=== PATIENT | female | born 1955 | race Caucasian/White ===

== ENCOUNTER 2017-02-10 23:54 | Inpatient (IN) | payer BC ==
[2017-02-11] MEDS ORDERED: SODIUM CHLORIDE 0.9% 1,000 ML IV STA (00:14)
[2017-02-11] MEDS ORDERED: HYDROmorphone 1 MG/ML 1 ML SYRINGE IVP STA ×2 (00:14→00:20)
[2017-02-11] MEDS ORDERED: ONDANSETRON 4 MG/2 ML VIAL IVP STA (00:14)
--- NOTE | 2017-02-11 00:20 | ED ---
General Adult HPI - General Chief complaint: Abdominal Pain Stated complaint: abd pain Time Seen by Provider: 02/11/17 00:00 Source: patient, RN notes reviewed Mode of arrival: ambulatory Limitations: no limitations - History of Present Illness Initial comments: This is a 61-year-old female presents to the emergency department complaining of epigastric pain and right upper quadrant pain. Patient states it started after she ate at 3:00 this afternoon and the pain is gotten worse. Patient states she's had similar episodes last week 2 days in a row after eating. Patient denies any abdominal surgeries. Patient denies any recent fever or chills. Patient states she is nauseated but is not vomiting. Patient denies any diarrhea. Patient denies any chest pain difficulty breathing or palpitations. Patient states the pain is currently quite significant. Patient denies any headache patient denies numbness weakness. - Related Data Home Medications Medication Instructions Recorded Confirmed No Known Home Medications [No 02/11/17 02/11/17 Known Home Medications] Allergies Allergy/AdvReac Type Severity Reaction Status Date / Time codeine Allergy Unknown Verified 02/11/17 00:03 amoxicillin AdvReac Nausea & Verified 02/11/17 00:03 Vomiting & Diarrhea Review of Systems ROS Statement: Those systems with pertinent positive or pertinent negative responses have been documented in the HPI. ROS Other: All systems not noted in ROS Statement are negative. Past Medical History Past Medical History: No Reported History History of Any Multi-Drug Resistant Organisms: None Reported Past Surgical History: Tonsillectomy Past Psychological History: No Psychological Hx Reported Smoking Status: Former smoker Past Alcohol Use History: Daily Past Drug Use History: None Reported General Exam - General Exam Comments Initial Comments: GENERAL: Patient is well-developed and well-nourished. Patient is nontoxic and well- hydrated and is in moderate distress. ENT: Neck is soft and supple. No significant lymphadenopathy is noted. Oropharynx is clear. Moist mucous membranes. Neck has full range of motion without eliciting any pain. EYES: The sclera were anicteric and conjunctiva were pink and moist. Extraocular movements were intact and pupils were equal round and reactive to light. Eyelids were unremarkable. PULMONARY: Unlabored respirations. Good breath sounds bilaterally. No audible rales rhonchi or wheezing was noted. CARDIOVASCULAR: There is a regular rate and rhythm without any murmurs gallops or rubs. ABDOMEN: Patient has tender epigastric region as well as left upper quadrant. There is no rebound. No palpable organomegaly was noted. There is no palpable pulsatile mass. SKIN: Skin is clear with no lesions or rashes and otherwise unremarkable. NEUROLOGIC: Patient is alert and oriented x3. Cranial nerves II through XII are grossly intact. Motor and sensory are also intact. Normal speech, volume and content. Symmetrical smile. MUSCULOSKELETAL: Normal extremities with adequate strength and full range of motion. No lower extremity swelling or edema. No calf tenderness. LYMPHATICS: No significant lymphadenopathy is noted PSYCHIATRIC: Normal psychiatric evaluation. Limitations: no limitations Course Vital Signs 02/10/17 23:59 Temperature 97.1 F L Pulse Rate 89 Respiratory 20 Rate Blood Pressure 169/81 O2 Sat by Pulse 100 Oximetry Medical Decision Making - Medical Decision Making EKG shows a normal sinus rhythm at 91 bpm OR interval is 152 QRS is 82 QT interval 372 QTC is 457 per patient's EKG shows no ST segment elevation or depression or T wave abnormalities are noted. Ultrasound shows acute cholecystitis with multiple stones as well as dilated common bile duct. - Lab Data Result diagrams: 02/11/17 00:30 02/11/17 00:30 Lab Results 02/11/17 02/11/17 02/11/17 Range/Units 00:30 00:30 00:30 WBC 9.4 (3.8-10.6) k/uL RBC 4.69 (3.80-5.40) m/uL Hgb 15.3 (11.4-16.0) gm/dL Hct 44.3 (34.0-46.0) % MCV 94.4 (80.0-100.0) fL MCH 32.7 (25.0-35.0) pg MCHC 34.6 (31.0-37.0) g/dL RDW 12.6 (11.5-15.5) % Plt Count 286 (150-450) k/uL Neutrophils % 78 % Lymphocytes % 14 % Monocytes % 4 % Eosinophils % 2 % Basophils % 1 % Neutrophils # 7.4 (1.3-7.7) k/uL Lymphocytes # 1.3 (1.0-4.8) k/uL Monocytes # 0.4 (0-1.0) k/uL Eosinophils # 0.2 (0-0.7) k/uL Basophils # 0.1 (0-0.2) k/uL Sodium 139 (137-145) mmol/L Potassium 3.6 (3.5-5.1) mmol/L Chloride 100 (98-107) mmol/L Carbon Dioxide 29 (22-30) mmol/L Anion Gap 10 mmol/L BUN 14 (7-17) mg/dL Creatinine 0.80 (0.52-1.04) mg/dL Est GFR (MDRD) Af Amer >60 (>60 ml/min/1.73 sqM) Est GFR (MDRD) Non-Af >60 (>60 ml/min/1.73 sqM) Glucose 156 H (74-99) mg/dL Plasma Lactic Acid Neil 1.2 (0.7-2.0) mmol/L Calcium 11.3 H (8.4-10.2) mg/dL Total Bilirubin 2.7 H (0.2-1.3) mg/dL AST 703 H (14-36) U/L ALT 488 H (9-52) U/L Alkaline Phosphatase 214 H (38-126) U/L Total Protein 7.7 (6.3-8.2) g/dL Albumin 4.5 (3.5-5.0) g/dL Amylase 2230 H* (30-110) U/L Lipase >54202 H (23-300) U/L Urine Color Urine Appearance (Clear) Urine pH (5.0-8.0) Ur Specific [place] (1.001-1.035) Urine Protein (Negative) Urine Glucose (UA) (Negative) Urine Ketones (Negative) Urine Blood (Negative) Urine Nitrite (Negative) Urine Bilirubin (Negative) Urine Urobilinogen (<2.0) mg/dL Ur Leukocyte Esterase (Negative) Urine WBC (0-5) /hpf Ur Squamous Epith Cells (0-4) /hpf Urine Bacteria (None) /hpf Urine Yeast (Budding) (None) /hpf 02/11/17 Range/Units 01:35 WBC (3.8-10.6) k/uL RBC (3.80-5.40) m/uL Hgb (11.4-16.0) gm/dL Hct (34.0-46.0) % MCV (80.0-100.0) fL MCH (25.0-35.0) pg MCHC (31.0-37.0) g/dL RDW (11.5-15.5) % Plt Count (150-450) k/uL Neutrophils % % Lymphocytes % % Monocytes % % Eosinophils % % Basophils % % Neutrophils # (1.3-7.7) k/uL Lymphocytes # (1.0-4.8) k/uL Monocytes # (0-1.0) k/uL Eosinophils # (0-0.7) k/uL Basophils # (0-0.2) k/uL Sodium (137-145) mmol/L Potassium (3.5-5.1) mmol/L Chloride (98-107) mmol/L Carbon Dioxide (22-30) mmol/L Anion Gap mmol/L BUN (7-17) mg/dL Creatinine (0.52-1.04) mg/dL Est GFR (MDRD) Af Amer (>60 ml/min/1.73 sqM) Est GFR (MDRD) Non-Af (>60 ml/min/1.73 sqM) Glucose (74-99) mg/dL Plasma Lactic Acid Neil (0.7-2.0) mmol/L Calcium (8.4-10.2) mg/dL Total Bilirubin (0.2-1.3) mg/dL AST (14-36) U/L ALT (9-52) U/L Alkaline Phosphatase (38-126) U/L Total Protein (6.3-8.2) g/dL Albumin (3.5-5.0) g/dL Amylase (30-110) U/L Lipase (23-300) U/L Urine Color Light Yellow Urine Appearance Cloudy H (Clear) Urine pH 8.0 (5.0-8.0) Ur Specific [place] 1.004 (1.001-1.035) Urine Protein Negative (Negative) Urine Glucose (UA) Negative (Negative) Urine Ketones 1+ H (Negative) Urine Blood Negative (Negative) Urine Nitrite Negative (Negative) Urine Bilirubin Negative (Negative) Urine Urobilinogen <2.0 (<2.0) mg/dL Ur Leukocyte Esterase Trace H (Negative) Urine WBC 2 (0-5) /hpf Ur Squamous Epith Cells <1 (0-4) /hpf Urine Bacteria Few H (None) /hpf Urine Yeast (Budding) Few H (None) /hpf Disposition Clinical Impression: Acute cholecystitis due to biliary calculus, Acute gallstone pancreatitis Disposition: ADMITTED IP TO THIS HOSP Time of Disposition: 03:02
[2017-02-11 00:56] LABS: Basophils # (A) 0.1 k/uL (0-0.2); Basophils % (A) 1 %; CHCM 36.1; Eosinophils # (A) 0.2 k/uL (0-0.7); Eosinophils % (A) 2 %; HCT 44.3 % (34.0-46.0); HDW 2.47; HGB 15.3 gm/dL (11.4-16.0); Luc # (Auto) 0.15; Luc % (Auto) 2; Lymphocytes # (A) 1.3 k/uL (1.0-4.8); Lymphocytes % (A) 14 %; MCH 32.7 pg (25.0-35.0); MCHC 34.6 g/dL (31.0-37.0); MCV 94.4 fL (80.0-100.0); Mean Platelet Volume 7.4; Monocytes # (A) 0.4 k/uL (0-1.0); Monocytes % (A) 4 %; Neutrophils # (A) 7.4 k/uL (1.3-7.7); Neutrophils % (A) 78 %; RBC 4.69 m/uL (3.80-5.40); RDW 12.6 % (11.5-15.5); WBC 9.4 k/uL (3.8-10.6); WBC (Perox) 9.69
[2017-02-11 01:17] LABS: ALT 488 U/L (9-52); AST 703 U/L (14-36); Alkaline Phosphatase 214 U/L (38-126); Anion Gap 10 mmol/L; Blood Urea Nitrogen 14 mg/dL (7-17); Calcium 11.3 mg/dL (8.4-10.2); Carbon Dioxide 29 mmol/L (22-30); Chloride 100 mmol/L (98-107); Glucose 156 mg/dL (74-99); Non-African American GFR(MDRD) >60 (>60 ml/min/1.73 sqM); Potassium 3.6 mmol/L (3.5-5.1); Sodium 139 mmol/L (137-145); Total Bilirubin 2.7 mg/dL (0.2-1.3); Total Protein 7.7 g/dL (6.3-8.2)
[2017-02-11 01:26] LABS: Amylase 2230 U/L (30-110)
[2017-02-11 01:49] LABS: Appearance,Urine Cloudy (Clear); Bacteria,Urine Few /hpf; Bilirubin,Urine Negative (Negative); Glucose,Urine (UA) Negative (Negative); Ketones,Urine 1+ (Negative); Leukocyte Esterase,Urine Trace (Negative); Nitrite,Urine Negative (Negative); Particle Count 4874; Protein,Urine Negative (Negative); Specific Gravity,Urine 1.004 (1.001-1.035); Squamous Epithelial Cell,Urine <1 /hpf (0-4); UA Billing (MACRO vs. MICRO) MICRO; Urobilinogen,Urine <2.0 mg/dL (<2.0); WBC,Urine 2 /hpf (0-5)
[2017-02-11] MEDS ORDERED: PIPERACILLIN-TAZOBACTAM 3.375 GM in DEXTROSE/WATER 1 50ML.BAG IVPB STA (02:56)
[2017-02-11] MEDS ORDERED: SODIUM CHLORIDE 0.9% 1,000 ML IV ONE (03:03)
--- NOTE | 2017-02-11 03:24 | US ---
EXAM: US Abdomen Limited, Right Upper Quadrant. CLINICAL HISTORY: Reason: Pain TECHNIQUE: Real-time ultrasound of the right upper quadrant with image documentation. COMPARISON: No relevant prior studies available. FINDINGS: Liver: Uniform in appearance. Gallbladder: Elongated gallbladder measuring 9.5 cm, with wall thickening measuring 5 mm, and containing multiple stones within and what may be a small polyp proximally. Reported sonographic Chavez sign present. Common bile duct: Borderline caliber of the extrahepatic common duct measuring up to 7 mm, and there may be minimal intrahepatic biliary duct dilatation present on some of the images. Pancreas: Pancreatic duct is seen, and measures 2 mm, within normal limits. The visualized pancreas is uniform. Right kidney: Unremarkable. No stones. No solid mass. No hydronephrosis. IMPRESSION: 1. Cholelithiasis with additional findings raising suspicion for the presence of acute cholecystitis including reported sonographic Chavez sign, which could be correlated and confirmed clinically. Further imaging workup could be obtained as clinically indicated. 2. Slightly prominent appearance of the biliary ductal system without visualized common duct stone, where included. [employer] 02/11/17 03:27 Call Doctor Regarding Above results, called Dr. Huntley on 02/11 03:26 (-04:00)
[2017-02-11] MEDS: PIPERACILLIN-TAZOBACTAM 3.375 GM in DEXTROSE/WATER 1 50ML.BAG IVPB SCH ×2 (08:04→16:02)
[2017-02-11 08:08] LABS: Basophils # (A) 0.1 k/uL (0-0.2); Basophils % (A) 1 %; CH 33.8; CHCM 34.8; Eosinophils # (A) 0.2 k/uL (0-0.7); Eosinophils % (A) 3 %; HCT 41.9 % (34.0-46.0); HGB 14.1 gm/dL (11.4-16.0); Luc # (Auto) 0.12; Luc % (Auto) 2; Lymphocytes # (A) 1.8 k/uL (1.0-4.8); Lymphocytes % (A) 25 %; MCH 32.7 pg (25.0-35.0); MCHC 33.6 g/dL (31.0-37.0); MCV 97.4 fL (80.0-100.0); Mean Platelet Volume 7.1; Monocytes # (A) 0.5 k/uL (0-1.0); Monocytes % (A) 7 %; Neutrophils # (A) 4.4 k/uL (1.3-7.7); Neutrophils % (A) 62 %; RDW 12.7 % (11.5-15.5); WBC 7.1 k/uL (3.8-10.6); WBC (Perox) 7.12
[2017-02-11 08:15] LABS: INR 1.1 (<1.1); Prothrombin Time 10.7 sec (9.0-12.0)
[2017-02-11 08:27] LABS: ALT 531 U/L (9-52); AST 586 U/L (14-36); Alkaline Phosphatase 171 U/L (38-126); Anion Gap 10 mmol/L; Blood Urea Nitrogen 11 mg/dL (7-17); Calcium 10.2 mg/dL (8.4-10.2); Carbon Dioxide 24 mmol/L (22-30); Chloride 108 mmol/L (98-107); Glucose 93 mg/dL (74-99); Non-African American GFR(MDRD) >60 (>60 ml/min/1.73 sqM); Potassium 3.8 mmol/L (3.5-5.1); Sodium 142 mmol/L (137-145); Total Bilirubin 2.4 mg/dL (0.2-1.3); Total Protein 6.8 g/dL (6.3-8.2)
--- NOTE | 2017-02-11 09:12 | P.CONS ---
History of Present Illness - Reason for Consult Consult date: 02/11/17 Gallstone pancreatitis Requesting physician: Ugo Duarte - History of Present Illness 61-year-old female patient Dr. Rodriguez presents with acute midepigastric pain radiating to the upper back that started yesterday. Patient has had several attacks of this type of presentation over the last few months. Admission liver enzymes were elevated; total bilirubin 2.7. AST 703. ALT 488. Alkaline phosphatase 214. Amylase 2230. Lipase greater than 20,000. Denies weight loss , fever chills hematemesis hematochezia or melena. No history of hepatitis or pancreatitis. No history of intravenous drug abuse or alcohol. No changes in medications. White count 9.4. Hemoglobin 15.3. Calcium 11.3. Hematocrit 44.3. CO2 29. Urine has been more dark in nature but denies acholic stools. Ultrasound abdomen reported cholelithiasis with elongated gallbladder measuring 9.5 cm with wall thickening at 5 mm. CBD 7 mm possible minimal intrahepatic biliary duct dilatation. Pancreatic duct 2 mm. Pancreas is uniform. Review of Systems Constitutional: Denies fever, chills, sweats, weight gain, or loss. HEENT: Negative for migraines, blurred vision or loss, earaches, drainage, tinnitus, oral mucosal lesions, dysphagia, or odynophagia. CARDIAC: Negative for chest pain, arrhythmias, or palpitation. RESPIRATORY: Negative for shortness of breath, hemoptysis, cough, or sputum production. GI: See HPI for pertinent findings. : Negative for hematuria, urgency, frequency, polyuria, or dysuria. GYNc: Negative vaginal discharge. MUSCULOSKELETAL: Negative for muscle aches, swelling, arthritis, and arthralgias. NEUROLOGIC: Negative for stroke or TIA. ENDOCRINE: Negative for thyroid problems. SKIN: Negative for rash or itching. PSYCHIATRIC: Negative history for depression and anxiety All systems: negative (See HPI) Past Medical History Past Medical History: No Reported History History of Any Multi-Drug Resistant Organisms: None Reported Past Surgical History: Tonsillectomy Past Anesthesia/Blood Transfusion Reactions: No Reported Reaction Past Psychological History: No Psychological Hx Reported Smoking Status: Former smoker Past Alcohol Use History: Daily Past Drug Use History: None Reported - Past Family History Father Family Medical History: Cancer, Prostate Disorder, Rheumatoid Arthritis (RA) Additional Family Medical History / Comment(s): of prostate CA at 91 Mother Family Medical History: Diabetes Mellitus Sister(s) Family Medical History: Cancer Additional Family Medical History / Comment(s): Uterine CA; Whipple procedure secondary to mass on bile duct Medications and Allergies Home Medications Medication Instructions Recorded Confirmed Type Calcium Carbonate/Vitamin D3 1 tab PO DAILY 02/11/17 02/11/17 History [Calcium 600-Vit D3 200 Tablet] Cyanocobalamin (Vitamin B-12) 1,000 mcg PO DAILY 02/11/17 02/11/17 History [Vitamin B-12] Multivitamins, Thera [Multivitamin 1 tab PO DAILY 02/11/17 02/11/17 History (formulary)] Allergies Allergy/AdvReac Type Severity Reaction Status Date / Time codeine Allergy Unknown Verified 02/11/17 08:38 amoxicillin AdvReac Nausea & Verified 02/11/17 08:38 Vomiting & Diarrhea Physical Exam Vitals: Vital Signs Temp Pulse Pulse Pulse Resp BP BP 02/11/17 07:00 96.5 F L 74 19 128/75 02/11/17 04:10 97.1 F L 84 16 142/87 02/11/17 03:10 98.8 F 92 18 122/67 Pulse Ox 02/11/17 07:00 97 02/11/17 04:10 96 02/11/17 03:10 95 Intake and Output 02/10/17 02/11/17 02/11/17 22:59 06:59 14:59 Other: # Voids 1 Weight 56 kg General appearance: The patient is alert, oriented, in no acute distress. HET: Head is normocephalic and atraumatic. Pupils are equal and reactive. Oropharynx is clear without lesions. Neck: Supple without lymphadenopathy. Trachea midline. Heart: S1 S2. Regular rate and rhythm. Lungs: No crackles or wheezes are heard. Abdomen: Soft, mild midepigastric tenderness, nondistended with bowel sounds. No peritoneal signs. No palpable organomegaly or masses. Extremities: Normal skin color and turgor. No cyanosis, rash, ulceration, clubbing, or edema. Radial and pedal pulses are 2/4 bilaterally. Neurological: No focal deficits. Strength and sensation are grossly intact. Results CBC & Chem 7: 02/11/17 07:51 02/11/17 00:30 US - abdomen: report reviewed (Reviewed by Dr. George) Assessment and Plan (1) Acute gallstone pancreatitis Status: Acute Plan: 1. Repeat amylase lipase CMP today if significantly improved may allow a clear liquid diet later today followed by nothing by mouth after midnight. 2. If liver enzymes do not improve most likely will proceed with ERCP evaluation once amylase lipase improve. 3. General surgical consultation. 4. Check hepatitis panel. 5. Will follow with you. The anode adjuster has discussed the risks, benefits and alternative therapies for the above-mentioned procedure and for both sedation/analgesia as well as necessary blood product administration, if indicated, as they pertain to this patient. The patient has indicated understanding and acceptance of the risks and procedures discussed. Thank you for this kind referral and the opportunity to participate in the care of your patient. This consultation was discussed with Dr. George. The impression and plan of care have been directed as dictated.
[2017-02-11 09:38] LABS: Amylase 725 U/L (30-110)
[2017-02-11 10:50] LABS: Hepatitis B Surface Ag Index 0.09
[2017-02-11 10:56] LABS: Hepatitis B Core IgM Index 0.05
[2017-02-11 11:08] LABS: Hepatitis C Virus IgG Index 0.01
[2017-02-11 11:12] LABS: Hepatitis C Virus IgG Ab Negative (Negative)
--- NOTE | 2017-02-11 12:22 | P.GSCN ---
History of Present Illness Consult date: 02/11/17 History of present illness: patient is a 61-year-old white female who presented to the emergency room with midepigastric pain radiating to upper quadrant. The patient has had several such attacks in the past. The patient was noted to have an ultrasound which revealed gallstones. The patient had eaten nodules and cheese. Additionally the liver enzymes were noted to be elevated with a total bili of 2.7, AST 703, a LT 488, alk phos 214, amylase 2230, and lipase greater than 20, 000. The patient states that she drinks wine every evening but otherwise does not drink alcohol. Patient's pancreas on ultrasoundstudy was uniform. past surgical history: 1. Carpal tunnel 2. Tonsillectomy 3. D&C Past medical history: Negative Medications: Calcium B12 Multivitamin ALLERGIES: Amoxicillin causing diarrhea Questionable codeine Review of systems: HEENT negative Lungs negative Heart negative GI as above Patient has had one and one Social history: Smoking: Negative Alcohol: Wine in the evening Review of Systems - Constitutional Reports as per HPI - Cardiovascular Reports as per HPI - Respiratory Reports as per HPI - Gastrointestinal Reports as per HPI - Genitourinary Genitourinary: Reports as per HPI - Psychiatric Reports as per HPI Past Medical History Past Medical History: No Reported History History of Any Multi-Drug Resistant Organisms: None Reported Past Surgical History: Tonsillectomy Past Anesthesia/Blood Transfusion Reactions: No Reported Reaction Past Psychological History: No Psychological Hx Reported Smoking Status: Former smoker Past Alcohol Use History: Daily Past Drug Use History: None Reported - Past Family History Father Family Medical History: Cancer, Prostate Disorder, Rheumatoid Arthritis (RA) Additional Family Medical History / Comment(s): of prostate CA at 91 Mother Family Medical History: Diabetes Mellitus Sister(s) Family Medical History: Cancer Additional Family Medical History / Comment(s): Uterine CA; Whipple procedure secondary to mass on bile duct Medications and Allergies Home Medications Medication Instructions Recorded Confirmed Type Calcium Carbonate/Vitamin D3 1 tab PO DAILY 02/11/17 02/11/17 History [Calcium 600-Vit D3 200 Tablet] Cyanocobalamin (Vitamin B-12) 1,000 mcg PO DAILY 02/11/17 02/11/17 History [Vitamin B-12] Multivitamins, Thera [Multivitamin 1 tab PO DAILY 02/11/17 02/11/17 History (formulary)] Allergies Allergy/AdvReac Type Severity Reaction Status Date / Time codeine Allergy Unknown Verified 02/11/17 08:38 amoxicillin AdvReac Nausea & Verified 02/11/17 08:38 Vomiting & Diarrhea Surgical - Exam Vital Signs Temp Pulse Resp BP Pulse Ox 97.1 F L 89 20 169/81 100 02/10/17 23:59 02/10/17 23:59 02/10/17 23:59 02/10/17 23:59 02/10/17 23:59 - General well developed, no distress - Respiratory normal expansion, normal respiratory effort, clear to auscultation - Cardiovascular Rhythm: regular Heart Sounds: normal: S1, S2 - Abdomen tender to deep palpation mid epigastrium Abdomen: soft, bowel sounds - Psychiatric oriented to time, oriented to person, oriented to place, speech is normal Results - Labs 02/11/17 07:51 02/11/17 07:51 Abnormal Lab Results - Last 24 Hours (Table) 02/11/17 Range/Units 07:51 Chloride 108 H (98-107) mmol/L Total Bilirubin 2.4 H (0.2-1.3) mg/dL AST 586 H (14-36) U/L ALT 531 H (9-52) U/L Alkaline Phosphatase 171 H (38-126) U/L Amylase 725 H* (30-110) U/L Lipase 3991 H (23-300) U/L Diabetes panel 02/11/17 Range/Units 07:51 Sodium 142 (137-145) mmol/L Potassium 3.8 (3.5-5.1) mmol/L Chloride 108 H (98-107) mmol/L Carbon Dioxide 24 (22-30) mmol/L BUN 11 (7-17) mg/dL Creatinine 0.75 (0.52-1.04) mg/dL Glucose 93 (74-99) mg/dL Calcium 10.2 (8.4-10.2) mg/dL AST 586 H (14-36) U/L ALT 531 H (9-52) U/L Alkaline Phosphatase 171 H (38-126) U/L Total Protein 6.8 (6.3-8.2) g/dL Albumin 4.0 (3.5-5.0) g/dL Calcium panel 02/11/17 Range/Units 07:51 Calcium 10.2 (8.4-10.2) mg/dL Albumin 4.0 (3.5-5.0) g/dL Pituitary panel 02/11/17 Range/Units 07:51 Sodium 142 (137-145) mmol/L Potassium 3.8 (3.5-5.1) mmol/L Chloride 108 H (98-107) mmol/L Carbon Dioxide 24 (22-30) mmol/L BUN 11 (7-17) mg/dL Creatinine 0.75 (0.52-1.04) mg/dL Glucose 93 (74-99) mg/dL Calcium 10.2 (8.4-10.2) mg/dL Adrenal panel 02/11/17 Range/Units 07:51 Sodium 142 (137-145) mmol/L Potassium 3.8 (3.5-5.1) mmol/L Chloride 108 H (98-107) mmol/L Carbon Dioxide 24 (22-30) mmol/L BUN 11 (7-17) mg/dL Creatinine 0.75 (0.52-1.04) mg/dL Glucose 93 (74-99) mg/dL Calcium 10.2 (8.4-10.2) mg/dL Total Bilirubin 2.4 H (0.2-1.3) mg/dL AST 586 H (14-36) U/L ALT 531 H (9-52) U/L Alkaline Phosphatase 171 H (38-126) U/L Total Protein 6.8 (6.3-8.2) g/dL Albumin 4.0 (3.5-5.0) g/dL - Imaging US - abdomen: report reviewed, image reviewed Assessment and Plan Plan: impression/plan: 1. 61-year-old white female admitted with midepigastric pain/elevated pancreatic enzymes/gallstone pancreatitis 2. GI consultation appreciated 3. Nothing by mouth today we will repeat liver function studies lipase and amylase 4. Consider ERCP depending on patient's clinical progress
[2017-02-11] MEDS: ENOXAPARIN 40 MG/0.4 ML SYRINGE SQ SCH ×2 (12:57→13:08)
--- NOTE | 2017-02-11 13:09 | HP ---
DATE OF ADMISSION: ADDENDUM: ASSESSMENT: 1. Hypocalcemia presentation from dehydration. 2. Hyperbilirubinemia from obstruction. 3. Acute obstructive hepatitis, probably from gallstones.
--- NOTE | 2017-02-11 13:20 | HP ---
DATE OF ADMISSION: 02/11/2017 PRESENTING COMPLAINT: Abdominal pain. HISTORY OF PRESENTING COMPLAINT: This is a very pleasant 61-year-old patient who sees my partner Dr. Rodriguez. Patient has unremarkable past medical history. Patient states for the last few months she is getting abdominal pain off and on. She has ( ) down to gastritis and let it go. She does get often heartburn, but has not been too bothered. Last weekend she had quite a bit severe pain in the epigastrium. She let it go yet again. Yesterday pain was rather severe yet again with significant nausea, pain goes to the back. No fever and decided to come in. Labs did confirm acute pancreatitis with gallstones and some manifestation of acute cholecystitis. Hence, patient admitted for the same, made n.p.o. Patient's is at the bedside. The patient denies any diarrhea. REVIEW OF SYSTEMS: CONSTITUTIONAL: Weak and tired. HEENT: None. RESPIRATORY: None. CARDIOVASCULAR: None. GASTROINTESTINAL: As above. GENITOURINARY: None. MUSCULOSKELETAL: None. DERMATOLOGIC: None. HEMATOLOGIC: None. LYMPHATIC: None. PSYCHIATRY: None. NEUROLOGICAL: None. PAST MEDICAL HISTORY: None. PAST SURGICAL HISTORY: Tonsillectomy. SOCIAL HISTORY: Patient smoked for about 10 years; stopped 30 years ago. Patient drinks. May be a good size of a glass of wine, sometimes a bit extra every night. The patient is . Patient does take care of an elderly couple. Family history of prostate cancer, rheumatoid arthritis. HOME MEDICATIONS: 1. Multivitamin 1 tablet p.o. daily. 2. Vitamin B12, 1000 mcg p.o. daily. 3. Calcium 600 vitamin D3, one tablet p.o. daily. ALLERGIES: CODEINE and AMOXICILLIN exact allergy is unclear. On examination, temperature 97.1, pulse 89, respiration 20, blood pressure 122/67, pulse ox 95% on room air. GENERAL APPEARANCE: A thin built, lying in bed, not in distress. EYES: Pupils equal. Conjunctivae normal. HEENT: External appearance of nose and ears normal. Oral cavity dry mucous membrane. NECK: JVD not raised. Mass not palpable. RESPIRATORY: Effort normal. LUNGS: Fair air entry. CARDIOVASCULAR: First and second sounds normal. No edema. ABDOMEN: Tender, epigastric tenderness. No guarding or rigidity. Liver and spleen not palpable. LYMPHATIC: No lymph node palpable in the neck or axillae. PSYCHIATRY: Alert and oriented x3. Mood and affect normal. NEUROLOGICAL: Pupils equal. Cranial nerves grossly intact. Power and sensation grossly intact. INVESTIGATIONS: White count 9.4, hemoglobin 15.3. Potassium 3.6. Glucose 156. Calcium 11.3. Bilirubin 2.7, AST 703, AST 488. Amylase 2230, lipase greater than 20,000. Hepatitis screen negative. Ultrasound of the gallbladder shows gallstones with additional finding raising suspicion for acute cholecystitis. Common bile duct is 7 mm. ASSESSMENT: 1. Acute gallstone severe pancreatitis, present on admission in a patient who has had symptoms on and off for quite some time. 2. Possibly acute cholecystitis associated with multiple gallstones. 3. Possibly acute and chronic gastritis in a patient who does drink wine every night and has trouble with symptoms of gastroesophageal reflux disease present. 4. Possible gastroesophageal reflux disease associated with esophagitis. PLAN: Care was discussed with the patient's at the bedside. Patient getting IV fluids at the present time. Patient has been made n.p.o. Patient is on IV Zosyn for the possible cholecystitis gallstone induced pancreatic. Once the pancreatitis has quieted down. Patient will need an ERCP, possibly followed by cholecystectomy. Consultation to both GI and Surgery has been made. Questions were answered.
[2017-02-12] MEDS: PIPERACILLIN-TAZOBACTAM 3.375 GM in DEXTROSE/WATER 1 50ML.BAG IVPB SCH ×4 (00:59→23:36)
[2017-02-12 08:52] LABS: Basophils # (A) 0.1 k/uL (0-0.2); Basophils % (A) 1 %; CH 32.7; CHCM 32.6; Eosinophils # (A) 0.3 k/uL (0-0.7); Eosinophils % (A) 3 %; HDW 2.42; HGB 14.8 gm/dL (11.4-16.0); Luc # (Auto) 0.24; Luc % (Auto) 3; Lymphocytes # (A) 2.3 k/uL (1.0-4.8); Lymphocytes % (A) 29 %; MCH 32.4 pg (25.0-35.0); MCHC 32.1 g/dL (31.0-37.0); Mean Platelet Volume 7.2; Monocytes # (A) 0.4 k/uL (0-1.0); Monocytes % (A) 5 %; Neutrophils # (A) 4.9 k/uL (1.3-7.7); Neutrophils % (A) 60 %; RBC 4.55 m/uL (3.80-5.40); RDW 12.5 % (11.5-15.5); WBC 8.2 k/uL (3.8-10.6); WBC (Perox) 8.41
--- NOTE | 2017-02-12 09:09 | P.PN ---
Subjective patient is a 61-year-old white female who presented to the emergency room with midepigastric pain radiating to upper quadrant. The patient is suspected to have gallstone pancreatitis. Initially her amylase was 2230 and lipase was 20,000. She had a total bili of 2.7 and elevated AST and ALT. she was seen by GI in the ER considering an ERCP for later today. We're waiting repeat liver function studies and lipase and amylase. At this time the patient has some persistent nausea however her abdominal pain has subsided. Objective - Vital Signs Vital signs: Vital Signs Temp 97.8 F 02/12/17 07:00 Pulse 83 02/12/17 07:00 Resp 20 02/12/17 07:00 BP 118/68 02/12/17 07:00 Pulse Ox 96 02/12/17 07:00 Intake & Output 02/11/17 02/12/17 02/12/17 18:59 06:59 18:59 Other: # Voids 3 1 - Constitutional General appearance: Present: thin - Respiratory Respiratory: bilateral: CTA - Cardiovascular Rhythm: regular Heart sounds: normal: S1, S2 - Gastrointestinal General gastrointestinal: Present: normal bowel sounds, soft - Psychiatric Psychiatric: Present: appropriate affect, intact judgment & insight - Labs CBC & Chem 7: 02/12/17 08:35 02/11/17 07:51 Labs: Abnormal Lab Results - Last 24 Hours (Table) 02/11/17 02/11/17 02/12/17 Range/Units 07:51 13:25 08:35 MCV 101.0 H (80.0-100.0) fL Chloride 108 H (98-107) mmol/L Total Bilirubin 2.4 H (0.2-1.3) mg/dL AST 586 H (14-36) U/L ALT 531 H (9-52) U/L Alkaline Phosphatase 171 H (38-126) U/L Amylase 725 H* (30-110) U/L Lipase 3991 H 1347 H (23-300) U/L Assessment and Plan Plan: impression/plan: 1. 61-year-old white female admitted with midepigastric pain/elevated pancreatic enzymes/gallstone pancreatitis 2. GI consultation appreciated 3. repeat lipase amylase and liver function studies 4. Consider ERCP depending on patient's clinical progress 5. Laparoscopic cholecystectomy when patient stable 6. Dr. Horowitz is covering the patient I will be out of town for the rest of this week
[2017-02-12] MEDS: HYDROmorphone 1 MG/ML 1 ML SYRINGE IVP PRN (09:12)
[2017-02-12] MEDS: ONDANSETRON 4 MG/2 ML VIAL IVP PRN (09:12)
[2017-02-12 09:39] LABS: ALT 425 U/L (9-52); AST 271 U/L (14-36); Alkaline Phosphatase 194 U/L (38-126); Amylase 206 U/L (30-110); Anion Gap 17 mmol/L; Bilirubin, Delta 0.6 mg/dL (0.0-0.2); Blood Urea Nitrogen 17 mg/dL (7-17); Calcium 9.6 mg/dL (8.4-10.2); Carbon Dioxide 14 mmol/L (22-30); Chloride 111 mmol/L (98-107); Glucose 64 mg/dL (74-99); Non-African American GFR(MDRD) >60 (>60 ml/min/1.73 sqM); Potassium 3.9 mmol/L (3.5-5.1); Sodium 142 mmol/L (137-145); Total Bilirubin 1.9 mg/dL (0.2-1.3); Total Protein 7.9 g/dL (6.3-8.2)
--- NOTE | 2017-02-12 10:43 | P.PN ---
Subjective Principal diagnosis: Gallstone pancreatitis 61-year-old female admitted with gallstone pancreatitis. Denies abdominal pain. Total bilirubin decreased to 1.9. Conjugated 0.0. Afebrile. Lipase 300 range. IV Dilaudid for hip pain. Objective - Vital Signs Vital signs: Vital Signs Temp 97.8 F 02/12/17 07:00 Pulse 83 02/12/17 07:00 Resp 20 02/12/17 07:00 BP 118/68 02/12/17 07:00 Pulse Ox 96 02/12/17 07:00 Intake & Output 02/11/17 02/12/17 02/12/17 18:59 06:59 18:59 Other: # Voids 3 1 - Exam General appearance: The patient is alert, oriented, in no acute distress. HET: Head is normocephalic and atraumatic. Pupils are equal and reactive. Oropharynx is clear without lesions. Neck: Supple without lymphadenopathy. Trachea midline. Heart: S1 S2. Regular rate and rhythm. Lungs: No crackles or wheezes are heard. Abdomen: Soft, nontender, nondistended with bowel sounds. No peritoneal signs. No palpable organomegaly or masses. Extremities: Normal skin color and turgor. No cyanosis, rash, ulceration, clubbing, or edema. Radial and pedal pulses are 2/4 bilaterally. Neurological: No focal deficits. Strength and sensation are grossly intact. - Labs CBC & Chem 7: 02/12/17 08:35 02/12/17 08:35 Labs: Abnormal Lab Results - Last 24 Hours (Table) 02/11/17 02/12/17 02/12/17 Range/Units 13:25 08:35 08:35 MCV 101.0 H (80.0-100.0) fL Chloride 111 H (98-107) mmol/L Carbon Dioxide 14 L (22-30) mmol/L Glucose 64 L (74-99) mg/dL Total Bilirubin 1.9 H (0.2-1.3) mg/dL Unconjugated Bilirubin 1.3 H (0.0-1.1) mg/dL Delta Bilirubin 0.6 H (0.0-0.2) mg/dL AST 271 H (14-36) U/L ALT 425 H (9-52) U/L Alkaline Phosphatase 194 H (38-126) U/L Amylase 206 H (30-110) U/L Lipase 1347 H 335 H (23-300) U/L Assessment and Plan (1) Acute gallstone pancreatitis Status: Acute Plan: 1. Evaluation of morning chemistries suggest passage of gallstone. Plan of care and morning liver chemistries were discussed with Dr. Horowitz. We'll hold off ERCP at this time with repeat liver chemistries lipase in the a.m. Will allow clear liquid diet. Laparoscopic cholecystectomy is tentatively scheduled for . We'll continue to follow with you. Assessment and plan of care discussed with Dr. George.
[2017-02-12] MEDS: SODIUM CHLORIDE 0.9% 1,000 ML IV SCH ×2 (12:12→23:34)
--- NOTE | 2017-02-13 06:13 | PN ---
DATE OF SERVICE: 02/12/2017 PRESENTING COMPLAINT: Abdominal pain. INTERVAL HISTORY: This is a 61-year-old patient who has had abdominal pain off and on. She presented to emergency department after a very severe episode pain in the epigastrium and the right upper quadrant. Today, the patient is resting comfortably in bed. No acute complaints other than a headache from the previous evening, which has been resolved. No epigastric pain complaints and mild tenderness to the right and left upper quadrants. REVIEW OF SYSTEMS: Done for constitutional, cardiovascular, GI, pulmonary; relevant findings as above. CURRENT MEDICATIONS: Enoxaparin sodium 40 mg subcutaneous daily, hydromorphone 1 mg IV push every 4 hours as needed for pain, ondansetron 4 mg IV push every 6 hours for nausea and vomiting and piperacillin tazobactam IV solution given as an IV piggyback antibiotics. PHYSICAL EXAM: Vital signs include temperature 97.9, pulse 92, respirations 22, blood pressure 99/56, oxygen saturation 95% on room air. GENERAL APPEARANCE: A thin build lying in bed, not in distress. EYES: Pupils equal. Conjunctivae normal. HENT: External appearance of the nose and ears normal. Oral cavity dry mucous membranes. NECK: JVD not raised. Mass not palpable. RESPIRATORY: Effort normal. LUNGS: Good airway clearance. Lungs Clear to auscultation. CARDIOVASCULAR: First and second sounds normal. No edema. ABDOMEN: Tender, epigastric tenderness, no guarding or rigidity. Liver and spleen not palpable. LYMPHATICS: No lymph nodes palpable in the neck or axillae. PSYCHIATRY: Alert and oriented x3. Mood and affect normal. NEUROLOGIC: Pupils equal. Cranial nerves grossly intact. Power and sensation grossly intact. INVESTIGATIONS: White count within normal limits at 8.2, hemoglobin 14.8. Basic metabolic panel within normal limits. Alk phos 194, ALT 425, AST 271. Lipase 325. While all of those remain elevated, they are improved from previous days lab work. ASSESSMENT: 1. Acute gallstone severe pancreatitis present on admission in patient who has had symptoms on and off for sometime now. Based on patient's current lab values, it is likely that the stone that was seen on ultrasound has passed. Patient will remain hospitalized to determine passage of stone. Will continue to be followed by Surgery to determine the need for surgery. 2. Possible acute cholecystitis associated with multiple gallstones. 3. Possible acute on chronic gastritis in a patient who does drink wine every night and has had trouble with symptoms of gastroesophageal reflux disease. 4. Possible gastroesophageal reflux disease associated with esophagitis. PLAN: Care was again discussed with the patient. Patient continues to get IV fluids. Currently diet has been advanced per Surgery since they believe that the stone that was blocking the common bile duct has passed. Patient is on IV Zosyn for possible cholecystitis gallstone induced pancreatitis. Surgery continues to follow the patient to determine the need for an ERCP followed by a possible cholecystectomy. All questions were answered. Rounds and assessment were performed on the patient by me the nurse practitioner and attending Dr. Duarte. The relevant and crawley points of the assessment and rounding report, diagnosis and plan is as dictated above.
[2017-02-13] MEDS: ENOXAPARIN 40 MG/0.4 ML SYRINGE SQ SCH (09:12)
[2017-02-13] MEDS: SODIUM CHLORIDE 0.9% 1,000 ML IV SCH ×2 (09:12→19:07)
[2017-02-13] MEDS: PIPERACILLIN-TAZOBACTAM 3.375 GM in DEXTROSE/WATER 1 50ML.BAG IVPB SCH ×2 (09:38→17:25)
[2017-02-13 10:26] LABS: ALT 262 U/L (9-52); AST 117 U/L (14-36); Alkaline Phosphatase 119 U/L (38-126); Anion Gap 12 mmol/L; Blood Urea Nitrogen 6 mg/dL (7-17); Calcium 9.3 mg/dL (8.4-10.2); Carbon Dioxide 22 mmol/L (22-30); Chloride 111 mmol/L (98-107); Glucose 136 mg/dL (74-99); Non-African American GFR(MDRD) >60 (>60 ml/min/1.73 sqM); Potassium 3.6 mmol/L (3.5-5.1); Sodium 145 mmol/L (137-145); Total Bilirubin 0.9 mg/dL (0.2-1.3); Total Protein 6.5 g/dL (6.3-8.2)
--- NOTE | 2017-02-13 12:14 | P.PN ---
Subjective Principal diagnosis: Gallstone pancreatitis 61-year-old female admitted with gallstone pancreatitis. Denies abdominal pain. Liver enzymes total bilirubin improved. Total bilirubin normal. Afebrile. Scheduled for laparoscopic cholecystectomy tomorrow. Objective - Vital Signs Vital signs: Vital Signs Temp 97.7 F 02/13/17 07:00 Pulse 63 02/13/17 07:00 Resp 20 02/13/17 07:00 BP 111/67 02/13/17 07:00 Pulse Ox 96 02/13/17 07:00 Intake & Output 02/12/17 02/13/17 02/13/17 18:59 06:59 18:59 Intake Total 200 600 Balance 200 600 Weight 56 kg Intake: Oral 200 600 Other: # Voids 2 1 - Exam General appearance: The patient is alert, oriented, in no acute distress. HET: Head is normocephalic and atraumatic. Pupils are equal and reactive. Oropharynx is clear without lesions. Neck: Supple without lymphadenopathy. Trachea midline. Heart: S1 S2. Regular rate and rhythm. Lungs: No crackles or wheezes are heard. Abdomen: Soft, nontender, nondistended with bowel sounds. No peritoneal signs. No palpable organomegaly or masses. Extremities: Normal skin color and turgor. No cyanosis, rash, ulceration, clubbing, or edema. Radial and pedal pulses are 2/4 bilaterally. Neurological: No focal deficits. Strength and sensation are grossly intact. - Labs CBC & Chem 7: 02/12/17 08:35 02/13/17 09:18 Labs: Abnormal Lab Results - Last 24 Hours (Table) 02/13/17 Range/Units 09:18 Chloride 111 H (98-107) mmol/L BUN 6 L (7-17) mg/dL Glucose 136 H (74-99) mg/dL AST 117 H (14-36) U/L ALT 262 H (9-52) U/L Assessment and Plan (1) Acute gallstone pancreatitis Status: Acute Plan: 1. ERCP not recommended at this time considering liver enzymes have improved with normalization of bilirubin. Patient is scheduled for laparoscopic cholecystectomy tomorrow. We'll follow as needed. Assessment and plan a care discussed with Dr. George.
--- NOTE | 2017-02-13 14:04 | P.PN ---
Subjective Principal diagnosis: Biliary pancreatitis 61-year-old female admitted with gallstone pancreatitis. Denies abdominal pain. Liver enzymes total bilirubin improved. Total bilirubin normal. Afebrile. Scheduled for laparoscopic cholecystectomy tomorrow. Objective - Vital Signs Vital signs: Vital Signs Temp 97.7 F 02/13/17 07:00 Pulse 63 02/13/17 07:00 Resp 20 02/13/17 07:00 BP 111/67 02/13/17 07:00 Pulse Ox 96 02/13/17 07:00 Intake & Output 02/12/17 02/13/17 02/13/17 18:59 06:59 18:59 Intake Total 200 600 Balance 200 600 Weight 56 kg Intake: Oral 200 600 Other: # Voids 2 1 - Constitutional General appearance: Present: average body habitus - Gastrointestinal Gastrointestinal Comment(s): abd is soft and non tender - Labs CBC & Chem 7: 02/12/17 08:35 02/13/17 09:18 Labs: Abnormal Lab Results - Last 24 Hours (Table) 02/13/17 Range/Units 09:18 Chloride 111 H (98-107) mmol/L BUN 6 L (7-17) mg/dL Glucose 136 H (74-99) mg/dL AST 117 H (14-36) U/L ALT 262 H (9-52) U/L Assessment and Plan (1) Acute cholecystitis due to biliary calculus Status: Acute Plan: Patient is doing well Had a detailed discussion about the surgery and all questions were answered. Plan to proceed tomorrow with laparoscopic choelcystectomy possible open with cholangiogram
--- NOTE | 2017-02-13 21:36 | PN ---
DATE OF SERVICE: 02/13/2017 PRESENTING COMPLAINT: Abdominal pain. INTERVAL HISTORY: This is a 61-year-old patient who has had abdominal pain off and on, was found to have gallstone pancreatitis based on lab values. Today patient is resting comfortably in bed. No acute complaints. Awake, alert, conversant, making jokes. No epigastric pain or complaints. No nausea. No vomiting. No pain to the upper right and left quadrants. Review of systems done for constitutional, cardiovascular, GI, pulmonary; relevant findings as above. CURRENT MEDICATIONS: 1. Enoxaparin sodium. 2. Hydromorphone. 3. Ondansetron. 4. Piperacillin tazobactam. PHYSICAL EXAMINATION: VITAL SIGNS: Temperature 97.3, pulse rate 71, respirations 20, blood pressure 120/76, oxygen saturation 97% on room air. GENERAL APPEARANCE: Patient is sitting up in bed, not in any distress. Smiling. Looks good. EYES: Pupils equal. Conjunctivae normal. NECK: JVD not raised. Mass not palpable. RESPIRATORY: Effort normal. LUNGS: Good airway clearance. CARDIOVASCULAR: S1, S2 normal. No edema. ABDOMEN: Mild epigastric tenderness. No guarding or rigidity. Liver and spleen not palpable. PSYCHIATRY: Alert and oriented x3. Mood and affect normal. INVESTIGATIONS: Patient's AST 117, ALT 262, lipase 271. ASSESSMENT: 1. Acute gallstone pancreatitis, present on admission, in a patient who has had symptoms off and on for some time now. Based on patient's current lab values, it is likely that the stone that was seen on ultrasound has passed. Surgery does not recommend ERCP at this time due to normalization of patient's lab values. However, patient is scheduled for surgery on 02/14/2017 for cholecystectomy. 2. Possible acute cholecystitis associated with multiple gallstones, possible acute on chronic gastritis in a patient who does drink wine every night and has had trouble with symptoms of gastroesophageal reflux disease. 3. Possible gastroesophageal reflux disease with esophagitis. PLAN: Care was discussed with the patient and her , who is at the bedside. IV fluids will continue. Patient had a diet for today; however, she will be n.p.o. after midnight per Surgery. Patient continues on IV Zosyn. All questions were answered. History and physical was performed on the patient by me, the nurse practitioner, and attending, Dr. Duarte. The relevant points of the history, physical, diagnoses and plan were discussed and are as dictated above.
--- NOTE | 2017-02-13 21:38 | PN ---
DATE OF SERVICE: 02/12/2017 ADDENDUM: This patient was seen and examined by me. The patient was also seen and examined by nurse practitioner Ms. Dozier. The relevant points of the history, physical, diagnoses and plan were discussed with the nurse practitioner and are as dictated in her progress note.
[2017-02-14] MEDS: PIPERACILLIN-TAZOBACTAM 3.375 GM in DEXTROSE/WATER 1 50ML.BAG IVPB SCH ×3 (00:05→17:07)
[2017-02-14] MEDS: SODIUM CHLORIDE 0.9% 1,000 ML IV SCH ×2 (06:14→13:12)
[2017-02-14 08:26] LABS: CH 33.4; CHCM 33.8; HCT 42.1 % (34.0-46.0); HDW 2.39; MCH 33.1 pg (25.0-35.0); MCHC 33.3 g/dL (31.0-37.0); MCV 99.4 fL (80.0-100.0); Mean Platelet Volume 7.2; RBC 4.23 m/uL (3.80-5.40); RDW 12.4 % (11.5-15.5); WBC 4.8 k/uL (3.8-10.6)
[2017-02-14] MEDS ORDERED: IV FLUID CONTINUATION 500 ML IV ONE (08:36)
[2017-02-14 08:41] LABS: Amylase 82 U/L (30-110); Anion Gap 10 mmol/L; Blood Urea Nitrogen 6 mg/dL (7-17); Calcium 9.7 mg/dL (8.4-10.2); Carbon Dioxide 24 mmol/L (22-30); Chloride 111 mmol/L (98-107); Glucose 81 mg/dL (74-99); Non-African American GFR(MDRD) >60 (>60 ml/min/1.73 sqM); Sodium 145 mmol/L (137-145)
[2017-02-14] MEDS: ONDANSETRON 4 MG/2 ML VIAL IVP PRN (08:45)
[2017-02-14] MEDS ORDERED: DEXAMETHASONE SOD PHOS (MDV) 100 MG/10 ML VIAL IV ONE (08:46)
[2017-02-14] MEDS ORDERED: HEPARIN SODIUM,PORCINE 5,000 UNIT/ML 1 ML VIAL SQ ONE (08:46)
[2017-02-14] MEDS ORDERED: GLYCOPYRROLATE 0.2 MG/ML 2 ML VIAL ONE (09:11)
[2017-02-14] MEDS ORDERED: PHENYLEPHRINE-0.9% NACL SYG 1 MG/10 ML SYRINGE ONE (09:11)
[2017-02-14] MEDS ORDERED: ESMOLOL 100 MG/10 ML VIAL ONE (09:11)
[2017-02-14] MEDS ORDERED: LABETALOL 5 MG/ML VIAL MDV ONE (09:11)
[2017-02-14] MEDS ORDERED: PROPOFOL 10 MG/ML 20 ML VIAL IV ONE (09:11)
[2017-02-14] MEDS ORDERED: BUPIVACAIN-EPI 0.25%-1:200,000 30 ML VIAL SQ ONE (09:11)
[2017-02-14] MEDS ORDERED: LIDOCAINE 1% INJ 10MG/ML (20 ML MDV) ONE (09:11)
[2017-02-14] MEDS ORDERED: MIDAZOLAM 2 MG/2 ML VIAL ONE (09:11)
[2017-02-14] MEDS ORDERED: fentaNYL (PF) 50 MCG/ML 2 ML AMP ONE (09:11)
[2017-02-14] MEDS ORDERED: NEOSTIGMINE 1 MG/ML 10 ML VIAL ONE (09:11)
[2017-02-14] MEDS ORDERED: VECURONIUM 10 MG VIAL IV ONE (09:11)
[2017-02-14] MEDS ORDERED: SUCCINYLCHOLINE CHLORIDE 100 MG/5 ML SYR IV ONE (09:11)
[2017-02-14] MEDS ORDERED: LACTATED RINGERS 1,000 ML IV ONE (09:35)
--- NOTE | 2017-02-14 10:43 | P.OP ---
Date of Procedure: 02/14/17 Preoperative Diagnosis: Gallstone pancreatitis Postoperative Diagnosis: Gallstone pancreatitis Large Paraesophageal hernia Procedure(s) Performed: laparoscopic cholecystectomy Anesthesia: NARINDER Surgeon: Charity Horowitz Pathology: other Condition: stable Disposition: PACU Operative Findings: Large paraesophageal hernia Gallstone pancreatitis Cholelithiasis Description of Procedure: The patient is a 61-year-old female who presented with epigastric and upper abdominal pain and diagnosed as having gallstone pancreatits an ultrasound suggested cholelithiasis. Once her labs normalized, we recommended a laparoscopic choelcystectomy. The risks benefits and possible complications of the procedure were discussed in detail and informed consent was obtained. Patient was identified in the preop operating holding area questions were answered and she was taken back to the operating room where she was placed in the supine position. She was given general anesthesia with endotracheal intubation and an appropriate timeout was called the indication procedure ALLERGIES medications from her prophylaxis were all discussed. Abdomen is prepped and draped in the usual sterile surgical fashion supraumbilical region was infiltrated with quarter percent with local anesthesia and incision was made with 11 blade and Veress needle was introduced and abdomen was insufflated to 15 mmHg. Once that was done a 10 mm epigastric port and two 5 mm right upper quadrant ports were placed.the gallbladder was retracted cephalad and superiorly.The fundus was retracted so as to make the Calot's triangle more visible. Its heart rate at this time went up from 60-130 and pressures were slightly difficult to maintain however the procedure continued appropriately as dictated. There were inflammatory peritoneal adhesions and the gallbladder was distended. The adhesions were taken down with the help of blunt dissection and using some electrocautery, skeletonizing the cystic duct and the multiple branches of the cystic artery. Cystic duct was clipped proximally and distally followed by clipping of the branches of the cystic artery following which they were transected sharply with the help of the soco. The gallbladder was then taken off the gallbladder fossa with the help of electrocautery and placed in an Endo Catch bag and removed through the 10 m port site after dilating the port site with a Yolis. The port was replaced and the gallbladder fossa was inspected and hemostasis was secured with the help of electrocautery the abdomen was thoroughly irrigated and sucked dry. [place] were noted to be in the appropriate position at this time to take procedure was terminated. There is a tachycardia at a detailed survey of the abdomen was done. There was no sign of any other bleeding or injury. However in the left upper quadrant there was a large paraesophageal hernia with a third of the fundus of the stomach in the chest. At this time the procedure was terminated at and with the help of suction all the air was sucked out. Then the 10 mm port was removed and the port site was closed with the help of a Shawn Watters using 0 Vicryl.The Gas was shut off and all the 5 mm ports were removed. The abdomen was thoroughly desufflated. The remaining local anesthesia was infiltrated into the incisions and the incisions were closed with the help of 4-0 Monocryl and Dermabond was applied. The patient was extubated and taken to recovery room in stable condition where a chest x-ray was ordered. She remained clinically stable.
[2017-02-14] MEDS ORDERED: IBUPROFEN 800 MG TAB PO PRN (10:44)
[2017-02-14] MEDS ORDERED: BISACODYL 5 MG TABLET.DR PO PRN (10:46)
[2017-02-14] MEDS: HYDROmorphone 1 MG/ML 1 ML SYRINGE IVP ONE ×2 (10:56→11:09)
--- NOTE | 2017-02-14 11:33 | XR ---
EXAMINATION TYPE: XR chest 1V portable DATE OF EXAM: 02/14/2017 10:44 AM COMPARISON: NONE HISTORY: Possible left-sided pneumothorax, pain postop TECHNIQUE: Single frontal view of the chest is obtained. FINDINGS: There is no focal air space opacity, pleural effusion, or pneumothorax seen. The cardiac silhouette size is within normal limits. The osseous structures are intact. There is air beneath the right hemidiaphragm compatible with free intraperitoneal air. Arthropathy of the shoulders noted. No overt failure. IMPRESSION: 1. No sizable pneumothorax 2. Free intraperitoneal air. Patient immediately postoperative. Physician notified.
[2017-02-14] MEDS: ENOXAPARIN 40 MG/0.4 ML SYRINGE SQ SCH (12:53)
[2017-02-14] MEDS: HYDROmorphone 1 MG/ML 1 ML SYRINGE IVP PRN (18:33)
[2017-02-15] MEDS: PIPERACILLIN-TAZOBACTAM 3.375 GM in DEXTROSE/WATER 1 50ML.BAG IVPB SCH ×3 (00:09→15:51)
[2017-02-15] MEDS: SODIUM CHLORIDE 0.9% 1,000 ML IV SCH ×2 (00:10→11:47)
[2017-02-15] MEDS: ENOXAPARIN 40 MG/0.4 ML SYRINGE SQ SCH (07:49)
--- NOTE | 2017-02-15 07:51 | P.PN ---
Subjective Principal diagnosis: Biliary pancreatitis 61-year-old female admitted with gallstone pancreatitis. She is postop day 1 after laparoscopic cholecystectomy. She is doing well tolerating a regular diet has not passed flatus yet no nausea no vomiting. Pain is minimal and she' s only required pain medication once previously she is ablating well and breathing well. Objective - Vital Signs Vital signs: Vital Signs Temp 98.5 F 02/14/17 21:52 Pulse 96 02/14/17 21:52 Resp 18 02/14/17 21:52 BP 121/71 02/14/17 21:52 Pulse Ox 96 02/14/17 21:52 Intake & Output 02/14/17 02/15/17 02/15/17 18:59 06:59 18:59 Intake Total 1340 775 Output Total 10 Balance 1330 775 Intake: IV 1100 Oral 240 775 Output: Estimated Blood Loss 10 Other: Voiding Method Toilet Toilet # Voids 1 2 # Bowel Movements 0 - Gastrointestinal Gastrointestinal Comment(s): Surgeon a clean dry and intact some ecchymosis around it to moderately tender. Abdomen is otherwise soft. - Labs CBC & Chem 7: 02/14/17 08:07 02/14/17 08:07 Labs: Abnormal Lab Results - Last 24 Hours (Table) 02/14/17 Range/Units 08:07 Chloride 111 H (98-107) mmol/L BUN 6 L (7-17) mg/dL Assessment and Plan (1) Acute cholecystitis due to biliary calculus Status: Acute (2) Diaphragmatic hernia Status: Acute Plan: She is doing well from the surgical standpoint as long as the labs and chest x- ray are good she should be able to be discharged today to passing flatus. She is to follow-up in my clinic in a week's time. She will go home on ibuprofen for pain. Her restrictions have been discussed with the patient in detail.
[2017-02-15 08:35] LABS: Basophils % (A) 0 %; CH 33.1; CHCM 34.3; Eosinophils # (A) 0.3 k/uL (0-0.7); Eosinophils % (A) 3 %; HCT 42.6 % (34.0-46.0); HDW 2.42; HGB 14.2 gm/dL (11.4-16.0); Luc # (Auto) 0.18; Luc % (Auto) 2; Lymphocytes # (A) 2.8 k/uL (1.0-4.8); Lymphocytes % (A) 33 %; MCH 32.3 pg (25.0-35.0); MCHC 33.3 g/dL (31.0-37.0); MCV 96.8 fL (80.0-100.0); Mean Platelet Volume 7.4; Monocytes # (A) 0.6 k/uL (0-1.0); Monocytes % (A) 7 %; Neutrophils # (A) 4.8 k/uL (1.3-7.7); Neutrophils % (A) 56 %; RDW 12.4 % (11.5-15.5); WBC 8.7 k/uL (3.8-10.6); WBC (Perox) 8.62
--- NOTE | 2017-02-15 08:44 | XR ---
EXAMINATION TYPE: XR chest 1V DATE OF EXAM: 02/15/2017 8:39 AM CLINICAL HISTORY: Difficulty breathing. History of gallbladder surgery yesterday with new tachycardia and tachypnea. Rule out pneumothorax per order. TECHNIQUE: Single AP portable upright view of the chest is obtained. COMPARISON: Chest x-ray from one day earlier FINDINGS: There is persistent pneumoperitoneum below right hemidiaphragm. There is bibasilar linear atelectasis. No large pleural effusion or pneumothorax is seen. Cardiac silhouette size appears withi n normal limits. Show slight S-shaped scoliotic curvature in the spine IMPRESSION: No sizable pneumothorax is seen bilaterally. Bibasilar linear atelectasis noted. Pneumope ritoneum redemonstrated consistent with history of abdominal surgery yesterday.
[2017-02-15 08:58] LABS: ALT 256 U/L (9-52); AST 135 U/L (14-36); Alkaline Phosphatase 133 U/L (38-126); Anion Gap 10 mmol/L; Blood Urea Nitrogen 6 mg/dL (7-17); Carbon Dioxide 28 mmol/L (22-30); Chloride 107 mmol/L (98-107); Glucose 82 mg/dL (74-99); Non-African American GFR(MDRD) >60 (>60 ml/min/1.73 sqM); Potassium 3.8 mmol/L (3.5-5.1); Sodium 145 mmol/L (137-145); Total Protein 7.8 g/dL (6.3-8.2)
--- NOTE | 2017-02-15 09:29 | PN ---
DATE OF SERVICE: 02/14/2017 PRESENTING COMPLAINT: Abdominal pain. INTERVAL HISTORY: This is a 61-year-old patient who has had abdominal pain off and on and was found to have gallstone pancreatitis based on lab values. Today the patient is resting comfortably in bed. Awaiting her surgical time. No acute complaints. Awake, alert, conversant, making jokes. No epigastric pain or complaints. No nausea, no vomiting. Review of systems done for constitutional, cardiovascular, GI, pulmonary, relevant findings as above. CURRENT MEDICATIONS: Enoxaparin sodium, hydromorphone, ondansetron, piperacillin-tazobactam. PHYSICAL EXAM: VITAL SIGNS: Temperature 96.6, pulse 100, respirations 20, blood pressure 113/68, oxygen saturation 95% on room air. GENERAL APPEARANCE: Patient is sitting up in bed not in any distress, smiling, appears well. EYES: Pupils equal. Conjunctivae normal. NECK: JVD not raised. Mass not palpable. Respiratory effort normal. LUNGS: Good airway clearance. CARDIOVASCULAR: S1, S2 normal. No edema. ABDOMEN: Mild epigastric tenderness. No guarding or rigidity. Liver and spleen not palpable. PSYCHIATRY: Alert and oriented x3. Mood and affect normal. CBC all values within normal limits. BMP all values within normal limits. Amylase 82, down from a high of 725 on 02/11/2017. Lipase 231, which is within normal limits down from 1347 on 02/11/2017. ASSESSMENT: 1. Acute gallstone pancreatitis present on admission, now status post laparoscopic cholecystectomy. Patient seen in her room after surgery, looking well, sitting up, eating a meal of clear liquids. Patient's at the bedside. 2. Paraesophageal hernia. 3. Possible gastroesophageal reflux disease with esophagitis. This patient enjoys wine every night and has had trouble with symptoms of gastroesophageal reflux disease. PLAN: Provide support to the patient during the postoperative phase, monitor vital signs. Provide pain management during the postoperative period. Continue IV fluids. Patient has had a diet and is tolerating it well. If she continues to tolerate this, we will discontinue fluids. Surgery will continue to follow the patient as well. was at the bedside. All questions were answered. The patient was seen and examined by me/nurse practitioner and attending/Dr. Duarte. The relevant points of the history/physical/diagnosis/plan were discussed and are as dictated above.
[2017-02-15 10:25] LABS: Amylase 81 U/L (30-110)
[2017-02-15 15:02] VITALS: BP 110/66; PULSE 87; RESP 19; TEMP 97.2
--- NOTE | 2017-02-17 09:41 | DS ---
DATE OF ADMISSION: 02/11/2017 DATE OF DISCHARGE: 02/15/2017 FINAL DIAGNOSES: 1. Acute gallstone pancreatitis present on admission. 2. Paraesophageal hernia. 3. Possible gastroesophageal reflux disease with esophagitis. HOSPITAL COURSE: This very pleasant patient presented with acute abdominal pain, found to have gallstone pancreatitis. The pancreatitis settled down nicely. Patient did undergo laparoscopic cholecystectomy. Postprocedure the patient did really well, up and about, tolerating a diet, had a bowel movement. On exam: Lungs are clear. CARDIOVASCULAR: First and second sounds normal. ABDOMEN: Mild tenderness, bowel sounds present, soft. Care was discussed with patient and her . The patient's amylase and lipase have normalized. CONSULTATION: Dr. Horowitz from General Surgery; Dr. George from GI; Dr. Maral Chua from General Surgery. DISCHARGE MEDICATIONS: 1. Calcium with vitamin D 600/vitamin D 200, 1 tablet p.o. daily. 2. Vitamin B12 1000 mcg p.o. daily. 3. Multivitamin 1 tablet p.o. daily. 4. Motrin 800 mg p.o. q.6 p.r.n. for pain. Other instructions as per Surgery. It was not felt that patient needs any further antibiotics. Follow up with Dr. Horowitz on 02/25/17. Follow with Dr. Rodriguez on 02/19/17. DIET: Soft, bland.
--- NOTE | 2017-03-14 06:41 | PN ---
DATE OF SERVICE: 02/14/2017 ATTENDING NOTE: This patient was seen and examined by me on 02/14/17. I reviewed the note of my nurse practitioner, Ms. Dozier. I discussed and agree with the same. Patient was admitted with gallstone pancreatitis, which is more comfortable. No nausea or vomiting. On examination, afebrile. Blood pressure 103/68. RESPIRATORY: Effort normal. LUNGS: Fair air entry. ABDOMEN: Mild epigastric tenderness. No guarding or rigidity. PSYCH: Alert and oriented x3. INVESTIGATIONS: Amylase 82, lipase 231. ASSESSMENT: 1. Acute gallstone pancreatitis, status post laparoscopic cholecystectomy, doing better. 2. Possibly gastroesophageal reflux disease with esophagitis. PLAN: Continue current medication and treatment plan. Patient overall doing better. Care was discussed. was at the bedside.
--- NOTE | 2017-03-15 06:16 | PN ---
DATE OF SERVICE: 02/12/2017 ATTENDING NOTE: This patient ( ) reviewed by me. I reviewed the note of my nurse practitioner, Ms. Dozier. Discussed and agreed with the same. This is a patient admitted with gallstone pancreatitis. Patient is more comfortable, minimal tenderness. On examination, afebrile. Blood pressure 99/56. ON EXAMINATION: LUNGS: Fair air entry. CARDIOVASCULAR: First and second sounds normal. ABDOMEN: Has got some epigastric tenderness. No guarding or rigidity. INVESTIGATIONS: Lipase is 335, ALT 425, AST 271. ASSESSMENT: 1. Acute gallstone severe pancreatitis present on admission, feeling a bit better. 2. Possibly acute on chronic gastritis. 3. Possible acute cholecystitis with gallstones. PLAN: Patient is getting IV fluids. Per surgery diet has been advanced, ( ) stone may be blocked. Will follow.
--- NOTE | 2017-03-15 07:17 | PN ---
DATE OF SERVICE: 02/13/2017 ATTENDING NOTE: This patient was seen and examined by me on 02/13/2017. I reviewed the note of my nurse practitioner, Ms. Dozier which I agreed and discussed. This is a patient admitted with acute gallstone pancreatitis. Decided not been to proceed with ERCP and patient is due for cholecystectomy. Sitting up in bed, not in distress. On examination, blood pressure 120/76, pulse ox 97% on room air. Patient is sitting up, not in distress. Lungs are clear. CARDIOVASCULAR: First and second sounds normal. ABDOMEN: Epigastric tenderness. No guarding or rigidity. ASSESSMENT: 1. Acute gallstone pancreatitis, awaiting surgery. 2. Possibly acute cholecystitis from gallstones. PLAN: Continue current medication and treatment plan, including IV fluids, IV Zosyn. Due for surgery tomorrow. Slow to respond.
== END 2017-02-15 17:19 | disposition home or self-care (01) | DRG 418 ==
LOC: EC 23:54 → 4MS4W 02-11 03:06
PROVIDERS: ADMIT Hospitalist; ATTEND Hospitalist
PROC: 0FT44ZZ Resection of Gallbladder, Percutaneous Endoscopic Approach (ICD-10-PCS; principal; 2017-02-14 09:15)
DX: K85.10 Biliary acute pancreatitis without necrosis or infection (principal); K80.00 Calculus of gallbladder with acute cholecystitis without obstruction; K75.9 Inflammatory liver disease, unspecified; E83.51 Hypocalcemia; E86.0 Dehydration; K29.70 Gastritis, unspecified, without bleeding; K21.0 Gastro-esophageal reflux disease with esophagitis; K44.9 Diaphragmatic hernia without obstruction or gangrene; Z80.42 Family history of malignant neoplasm of prostate; Z87.891 Personal history of nicotine dependence; Z88.5 Allergy status to narcotic agent; Z88.1 Allergy status to other antibiotic agents
CPT/HCPCS: 36415; 71010; 76705; 80048; 80053; 80074; 81001; 82150; 82248; 83605; 83690; 85025; 85027; 85610; 88304; 93005; 96361; 96374; 96375; 99285

== ENCOUNTER → 2017-02-22 | Outpatient (CLI) | payer BC ==
[2017-02-22 11:45] LABS: Basophils % (A) 1 %; CH 33.4; CHCM 35.4; Eosinophils # (A) 0.3 k/uL (0-0.7); Eosinophils % (A) 5 %; HCT 40.1 % (34.0-46.0); HGB 14.1 gm/dL (11.4-16.0); Luc # (Auto) 0.15; Luc % (Auto) 3; Lymphocytes # (A) 1.5 k/uL (1.0-4.8); Lymphocytes % (A) 28 %; MCH 33.4 pg (25.0-35.0); MCHC 35.2 g/dL (31.0-37.0); MCV 94.7 fL (80.0-100.0); Mean Platelet Volume 7.3; Monocytes # (A) 0.3 k/uL (0-1.0); Monocytes % (A) 6 %; Neutrophils # (A) 3.1 k/uL (1.3-7.7); Neutrophils % (A) 58 %; RBC 4.24 m/uL (3.80-5.40); WBC 5.5 k/uL (3.8-10.6); WBC (Perox) 5.51
[2017-02-22 12:09] LABS: AST 40 U/L (14-36); Alkaline Phosphatase 98 U/L (38-126); Amylase 104 U/L (30-110); Blood Urea Nitrogen 15 mg/dL (7-17); Calcium 9.9 mg/dL (8.4-10.2); Carbon Dioxide 29 mmol/L (22-30); Chloride 104 mmol/L (98-107); Glucose 86 mg/dL (74-99); Non-African American GFR(MDRD) >60 (>60 ml/min/1.73 sqM); Total Bilirubin 0.6 mg/dL (0.2-1.3); Total Protein 7.4 g/dL (6.3-8.2)
[2017-02-22 12:12] LABS: ALT 68 U/L (9-52); Anion Gap 10 mmol/L; Potassium 4.7 mmol/L (3.5-5.1); Sodium 143 mmol/L (137-145)
== END | disposition home or self-care (01) ==
LOC: LABWHC1 11:01
PROVIDERS: ATTEND Family Medicine
DX: K85.82 Other acute pancreatitis with infected necrosis (principal)
CPT/HCPCS: 36415; 80053; 82150; 83690; 85025

== ENCOUNTER → 2018-08-27 | Outpatient (CLI) | payer MEDICARE ==
--- NOTE | 2018-08-29 12:05 | MM ---
Reason for exam: screening (asymptomatic). Last mammogram was performed 6 years and 9 months ago. History: Patient is postmenopausal and is nulliparous. Family history of breast cancer in paternal aunt and breast cancer in maternal aunt. Physical Findings: A clinical breast exam by your physician is recommended on an annual basis and results should be correlated with mammographic findings. MG Screening Mammo w CAD Bilateral CC and MLO view(s) were taken. Prior study comparison: November 26, 2011, bilateral digital screening mammo w/CAD. April 01, 2009, bilateral digital screening mammogram. The breast tissue is heterogeneously dense. This may lower the sensitivity of mammography. There is no discrete abnormality. No significant changes when compared with prior studies. ASSESSMENT: Negative, BI-RAD 1 RECOMMENDATION: Routine screening mammogram of both breasts in 1 year.
== END | disposition home or self-care (01) ==
LOC: RADMAMWWP 16:17
PROVIDERS: ATTEND Family Medicine
DX: Z12.31 Encounter for screening mammogram for malignant neoplasm of breast (principal)
CPT/HCPCS: 77067

== ENCOUNTER → 2019-01-05 | Outpatient (CLI) | payer MEDICARE ==
--- NOTE | 2019-01-05 17:29 | BD ---
EXAMINATION TYPE: Axial Bone Density DATE OF EXAM: 01/05/2019 COMPARISON: NONE CLINICAL HISTORY: 63-year-old female postmenopausal screening Height: 64 IN Weight: 120 LBS RISK FACTORS HISTORY OF: Active: YES Diet low in dairy products/other sources of calcium: YES Postmenopausal woman: AGE 48 MEDICATIONS: Additional Medications: MULTI VIT, CALCIUM, VIT B12 EXAM MEASUREMENTS: Bone mineral densitometry was performed using the [employer] System. Bone mineral density as measured about the Lumbar spine is: ----- L1-L4(G/cm2): 0.968 T Score Values are as follows: ----- L2: -1.8 ----- L3: -1.6 ----- L4: -2.0 ----- L1-L4: -1.8 Bone mineral density BASELINE Bone mineral density about the R hip (g/cm2): 0.738 Bone mineral density about the L hip (g/cm2): 0.765 T Score values are as follows: -----R Neck: -2.2 -----L Neck: -2.0 -----R Total: -1.3 -----L Total: -1.0 Bone mineral density BASELINE IMPRESSION: Osteopenia (T Score between -2.5 and -1). There is slightly increased risk of fracture and the patient may be considered for treatment. Re-Screen 2-5 years. NOTE: T-SCORE=SD OF THE YOUNG ADULT MEAN.
== END ==
LOC: RADBDWWP 07:21
PROVIDERS: ATTEND Family Medicine
DX: M85.80 Other specified disorders of bone density and structure, unspecified site (principal); Z78.0 Asymptomatic menopausal state
CPT/HCPCS: 77080

== ENCOUNTER → 2019-07-24 | Outpatient (CLI) | payer MEDICARE ==
[2019-07-24 11:30] LABS: Basophils # (A) 0.1 k/uL (0-0.2); Basophils % (A) 1 %; Eosinophils # (A) 0.2 k/uL (0-0.7); Eosinophils % (A) 3 %; HCT 42.7 % (34.0-46.0); HGB 14.3 gm/dL (11.4-16.0); Lymphocytes # (A) 1.4 k/uL (1.0-4.8); Lymphocytes % (A) 24 %; MCH 33.2 pg (25.0-35.0); MCHC 33.4 g/dL (31.0-37.0); MCV 99.6 fL (80.0-100.0); Mean Platelet Volume 7.5; Monocytes # (A) 0.3 k/uL (0-1.0); Monocytes % (A) 5 %; Neutrophils # (A) 3.7 k/uL (1.3-7.7); Neutrophils % (A) 65 %; Platelet Count 279 k/uL (150-450); RBC 4.29 m/uL (3.80-5.40); RDW 12.1 % (11.5-15.5); WBC 5.7 k/uL (3.8-10.6)
[2019-07-24 13:54] LABS: Erythrocyte Sedimentation Rate 9 mm/hr (0-20)
[2019-07-24 17:20] LABS: Gliadin AB IgA, Deaminated NEGATIVE (NEGATIVE); Gliadin AB IgA, Unit 0.9 U/mL; Gliadin AB IgG, Deaminated NEGATIVE (NEGATIVE)
== END | disposition home or self-care (01) ==
LOC: LABWHC1 10:40
PROVIDERS: ATTEND Nurse Practitioner
DX: R19.7 Diarrhea, unspecified (principal)
CPT/HCPCS: 36415; 83516; 85025; 85652; 86140

== ENCOUNTER → 2019-07-28 | Outpatient (CLI) | payer MEDICARE | END | disposition home or self-care (01) | LOC: LABWHC1 13:29 → EDSTATUS 13:36 | PROVIDERS: ATTEND Nurse Practitioner | DX: Z53.9 Procedure and treatment not carried out, unspecified reason (principal) ==

== ENCOUNTER → 2019-07-30 | Outpatient (CLI) | payer MEDICARE | END | disposition home or self-care (01) | LOC: LABWHC1 15:27 | PROVIDERS: ATTEND Nurse Practitioner | DX: R19.7 Diarrhea, unspecified (principal) | CPT/HCPCS: 83630; 83993; 87045; 87046; 87324; 87328; 87329 ==

== ENCOUNTER 2019-08-07 12:19 | Day surgery (SDC) | payer MEDICARE ==
[2019-08-05 09:23] VITALS: BMI 19.6
[~2019-08-07 12:19] MED LIST: LACTATED RINGERS 1,000 ML IV SCH; LIDOCAINE 1% 20 ML VIAL (10MG/ML) FOR IV START INTRADERMA PRN
[2019-08-07 12:49] VITALS: TEMP 98.2
[2019-08-07] MEDS ORDERED: PROPOFOL 10 MG/ML 20 ML VIAL IV ONE (13:23)
--- NOTE | 2019-08-07 13:39 | P.PCN ---
Date of Procedure: 08/07/19 Procedure(s) Performed: BRIEF HISTORY: Patient is a 64-year-old pleasant white female, scheduled for an elective colonoscopy as a part of evaluation of chronic postprandial diarrhea for the last 2-1/2 years duration. She has bowel movements anywhere from 3-4 a day which are loose to watery in consistency but no blood or mucus in the stool. PROCEDURE PERFORMED: Colonoscopy random biopsy. PREOPERATIVE DIAGNOSIS: Chronic diarrhea of 2 years duration. IV sedation per Anesthesia. PROCEDURE: After informed consent was obtained, the patient, was brought into the endoscopy unit. IV sedation was administered by Anesthesia under continuous monitoring. Digital rectal examination was normal. Initially the Olympus CF-160 flexible video colonoscope was then inserted in the rectum, gradually advanced into the cecum without any difficulty. Careful examination was performed as the scope was gradually being withdrawn. Ileocecal valve and the appendiceal orifice were visualized and appeared normal. Prep was excellent. Mucosa of the cecum, ascending colon, transverse colon, descending colon, sigmoid colon, and rectum appeared normal. Scattered sigmoid diverticulosis seen. Random biopsies were done from ascending and descending colon to rule out microscopic/collagenous colitis. Retroflexion was performed in the rectum and no lesions were seen. The patient tolerated the procedure well. IMPRESSION: Normal-appearing colon from rectum to cecum with no evidence of colitis or colorectal neoplasia Scattered sigmoidal diverticulosis. RECOMMENDATIONS: Findings of this examination were discussed with the patient as well as a family. She was advised to follow with the biopsy results. In the meantime she'll be given a prescription for Bentyl 10 mg 3 times daily to be taken as needed. She will be seen in office in one to 2 weeks
[2019-08-07 14:00] VITALS: RESP 18
[2019-08-07 14:20] VITALS: BP 124/75; PULSE 79
== END 2019-08-07 14:44 | disposition home or self-care (01) ==
LOC: ORWHC2ENDO 12:19
PROVIDERS: ATTEND Internal Medicine Gastroenterology
DX: K57.30 Diverticulosis of large intestine without perforation or abscess without bleeding (principal); R19.7 Diarrhea, unspecified; Z88.1 Allergy status to other antibiotic agents; Z88.5 Allergy status to narcotic agent
CPT/HCPCS: 88305; 45380; J2704

== ENCOUNTER 2021-01-02 07:58 | Observation (INO) | payer MEDICARE ==
[2021-01-02 08:08] LABS: Glucose,Whole Blood 126 mg/dL (75-99)
[2021-01-02 08:17] LABS: Basophils % (A) 1 %; Eosinophils # (A) 0.3 k/uL (0-0.7); Eosinophils % (A) 4 %; HCT 42.4 % (34.0-46.0); HGB 14.5 gm/dL (11.4-16.0); Lymphocytes # (A) 1.3 k/uL (1.0-4.8); Lymphocytes % (A) 19 %; MCHC 34.1 g/dL (31.0-37.0); MCV 96.9 fL (80.0-100.0); Mean Platelet Volume 7.6; Monocytes # (A) 0.3 k/uL (0-1.0); Monocytes % (A) 5 %; Neutrophils # (A) 4.8 k/uL (1.3-7.7); Neutrophils % (A) 70 %; Platelet Count 203 k/uL (150-450); RBC 4.38 m/uL (3.80-5.40); RDW 11.6 % (11.5-15.5); WBC 6.9 k/uL (3.8-10.6)
[2021-01-02 08:26] LABS: INR 0.9 (<1.2); Prothrombin Time 9.5 sec (9.0-12.0)
[2021-01-02 08:32] LABS: ALT 79 U/L (4-34); AST 130 U/L (14-36); Acetaminophen <10.0 ug/mL; African American GFR (CKD) >90 (>60 ml/min/1.73 sqM); Albumin 3.8 g/dL (3.5-5.0); Alcohol <10 mg/dL; Alkaline Phosphatase 101 U/L (38-126); Anion Gap 8 mmol/L; Blood Urea Nitrogen 15 mg/dL (7-17); Calcium 9.5 mg/dL (8.4-10.2); Carbon Dioxide 22 mmol/L (22-30); Chloride 108 mmol/L (98-107); Creatine Kinase 70 U/L (30-135); Glucose 137 mg/dL (74-99); Non-African American GFR(CKD) 80 (>60 ml/min/1.73 sqM); Potassium 3.8 mmol/L (3.5-5.1); Salicylate <1.0 mg/dL; Sodium 138 mmol/L (137-145); Total Bilirubin 0.4 mg/dL (0.2-1.3); Total Protein 6.8 g/dL (6.3-8.2)
[2021-01-02 08:36] LABS: Partial Thromboplastin Time 21.4 sec (22.0-30.0)
--- NOTE | 2021-01-02 08:37 | CT ---
EXAMINATION TYPE: CT brain cspine wo con DATE OF EXAM: 01/02/2021 COMPARISON: NONE HISTORY: Syncope, confusion. Headache and neck pain. CT DLP: 1340.9 mGycm. Automated Exposure Control for Dose Reduction was Utilized. TECHNIQUE: CT scan of the head and cervical spine are performed without contrast. FINDINGS: There is no acute intracranial hemorrhage or midline shift identified. Mild ventricular a nd sulcal prominence. Lin-white matter differentiation fairly well maintained. Visualized paranasal sinuses are clear and the globes are intact bilaterally. No suspicious opacification mastoid air cell s. Cervical spine is visualized in its entirety from C1 through upper thoracic levels and demonstrates s light scoliotic curvature without evidence of acute fracture or dislocation. Prevertebral soft tissu e appears within normal limits. The C1-C2 articulation is within normal limits on the coronal images . Vertebral body heights and disc space heights are maintained. Slight grade 1 anterolisthesis C4 on C5 and C5 on C6. Review of axial images shows multilevel uncovertebral facet degenerative changes contributing to mult ilevel bilateral neural foraminal narrowing greatest left C3-C4 and C5-C6 levels and right C4-C5 leve l. Heterogeneous enlarged right thyroid lobe with multiple bilateral thyroid nodules including rim ca lcified lower pole 9 mm left thyroid nodule. Lung apices show no pneumothorax. IMPRESSION: 1. There is no acute fracture or dislocation evident in the cervical spine. 2. No acute intracranial hemorrhage or midline shift is seen.
--- NOTE | 2021-01-02 09:16 | XR ---
EXAMINATION TYPE: XR chest 2V DATE OF EXAM: 01/02/2021 COMPARISON: Chest x-ray February 15, 2017 HISTORY: Syncope and weakness. TECHNIQUE: Frontal and lateral views of the chest are obtained. FINDINGS: Some increased right basilar markings on 2 views. Left lung is clear. No pleural effusion o r pneumothorax seen bilaterally. The cardiac silhouette size is stable and within normal limits. Th e osseous structures are intact. IMPRESSION: Possible early right lower lobe acute infiltrate and/or atelectasis, correlate clinically .
[2021-01-02 09:56] LABS: Amorphous Sediment,Urine Rare /hpf; Appearance,Urine Cloudy (Clear); Bilirubin,Urine Negative (Negative); Blood,Urine Negative (Negative); Color,Urine Yellow; Glucose,Urine (UA) Negative (Negative); Hyaline Casts,Urine 1 /lpf (0-2); Ketones,Urine Negative (Negative); Leukocyte Esterase,Urine Trace (Negative); Mucus,Urine Rare /hpf; Nitrite,Urine Negative (Negative); Protein,Urine Trace (Negative); RBC,Urine 1 /hpf (0-5); Specific Gravity,Urine 1.019 (1.001-1.035); Squamous Epithelial Cell,Urine <1 /hpf (0-4); Urobilinogen,Urine <2.0 mg/dL (<2.0); WBC,Urine 2 /hpf (0-5)
[2021-01-02 09:58] LABS: Amphetamine Screen,Urine Not Detected (NotDetected); Barbiturate Screen,Urine Not Detected (NotDetected); Benzodiazepines Screen,Urine Not Detected (NotDetected); Cocaine Screen,Urine Not Detected (NotDetected); Methadone Screen, Urine Not Detected (NotDetected); Opiate Screen,Urine Not Detected (NotDetected); Oxycodone Screen, Urine Not Detected (NotDetected); Phencyclidine Screen,Urine Not Detected (NotDetected); Tricyclic Antidepressant,Urine Not Detected (NotDetected); Urn Cannabinoid Scrn Not Detected (NotDetected)
--- NOTE | 2021-01-02 09:58 | ED ---
General Adult HPI - General Chief complaint: Syncope Stated complaint: syncope Time Seen by Provider: 01/02/21 08:00 Source: EMS Mode of arrival: EMS Limitations: no limitations - History of Present Illness Initial comments: Patient is a 65-year-old female who presents from home for possible syncopal episode. is at bedside and helps provide history. States that the patient felt well last night. She awoke him this morning to a gurgling sound. He asked her she was all right she said yes. She proceeded to get up from the bed and took 10 steps when she fell flat on her face. states there is no shaking but she was stiff and unresponsive for 5 minutes before becoming arousable. She seemed confused upon waking. EMS states that the patient was only in O 1. She arrives to the emergency department and does answer all questions appropriately however question answering is delayed. Patient reports no medical problems and does not take any medications. No recent illnesses. Does admit to mild headache. No fevers or chills. Denies headaches or visual changes at this time. No neck pain. No other alleviating, precipitating or modifying factors - Related Data Home Medications Medication Instructions Recorded Confirmed Cyanocobalamin (Vitamin B-12) 1,000 mcg PO DAILY 02/11/17 01/02/21 [Vitamin B-12] Multivitamins, Thera [Multivitamin 1 tab PO DAILY 02/11/17 01/02/21 (formulary)] Calcium Carbonate [Calcium] 600 mg PO DAILY 01/02/21 01/02/21 Cholestyramine (with Sugar) 4 gm PO BID 01/02/21 01/02/21 [Cholestyramine Packet] Previous Rx's Medication Instructions Recorded Aspirin 81 mg PO DAILY chew 01/03/21 levETIRAcetam [Keppra] 500 mg PO Q12HR #60 tab 01/03/21 Allergies Allergy/AdvReac Type Severity Reaction Status Date / Time amoxicillin AdvReac Nausea & Verified 01/02/21 09:39 Vomiting & Diarrhea codeine AdvReac Diarrhea Verified 01/02/21 09:39 Review of Systems ROS Statement: Those systems with pertinent positive or pertinent negative responses have been documented in the HPI. ROS Other: All systems not noted in ROS Statement are negative. Past Medical History Past Medical History: No Reported History History of Any Multi-Drug Resistant Organisms: None Reported Past Surgical History: Tonsillectomy Past Anesthesia/Blood Transfusion Reactions: No Reported Reaction Past Psychological History: No Psychological Hx Reported Smoking Status: Never smoker Past Alcohol Use History: Daily Past Drug Use History: None Reported - Past Family History Father Family Medical History: Cancer Additional Family Medical History / Comment(s): . Mother Family Medical History: Diabetes Mellitus Sister(s) Family Medical History: Cancer Additional Family Medical History / Comment(s): Uterine CA; General Exam Limitations: no limitations General appearance: alert, in no apparent distress Head exam: Present: atraumatic, normocephalic, normal inspection Eye exam: Present: normal appearance, PERRL, EOMI. Absent: scleral icterus, conjunctival injection, periorbital swelling ENT exam: Present: normal exam, mucous membranes moist Neck exam: Present: normal inspection. Absent: tenderness, meningismus, lymphadenopathy Respiratory exam: Present: normal lung sounds bilaterally. Absent: respiratory distress, wheezes, rales, rhonchi, stridor Cardiovascular Exam: Present: regular rate, normal rhythm, normal heart sounds. Absent: systolic murmur, diastolic murmur, rubs, gallop, clicks GI/Abdominal exam: Present: soft, normal bowel sounds. Absent: distended, tenderness, guarding, rebound, rigid Extremities exam: Present: normal inspection, full ROM, normal capillary refill. Absent: tenderness, pedal edema, joint swelling, calf tenderness Back exam: Present: normal inspection Neurological exam: Present: alert, oriented X3, CN II-XII intact Psychiatric exam: Present: normal affect, normal mood Skin exam: Present: warm, dry, intact, normal color. Absent: rash Course Vital Signs 01/02/21 01/02/21 01/02/21 08:00 08:26 08:51 Temperature 97.9 F Pulse Rate 104 H 99 98 Respiratory 18 15 18 Rate Blood Pressure 143/101 135/85 133/85 O2 Sat by Pulse 94 L 95 94 L Oximetry 01/02/21 01/02/21 01/02/21 10:16 10:28 11:43 Temperature 99.4 F 98.7 F Pulse Rate 96 100 98 Respiratory 16 16 16 Rate Blood Pressure 136/91 122/87 122/87 O2 Sat by Pulse 95 96 100 Oximetry EKG Findings - EKG Comments: EKG Findings:: EKG demonstrates sinus tachycardia with a ventricular rate of 105. OH interval 164. QRS 78. QTC of 422. No acute ST segment elevations or depressions Medical Decision Making - Medical Decision Making Upon arrival patient is placed into room 5. A thorough history and physical exam was performed. IV is established. Laboratory studies are conducted. Patient did go for CT of her brain and cervical spine. She is answering qu estions appropriately. Laboratory studies are reviewed. Chest x-ray demonstrated possibly early right lower lobe infiltrate and/or atelectasis. Patient has no clinical signs of pneumonia. CT the head and cervical spine demonstrates no cervical fractures. No intracranial bleeding. Did recommend overnight observation for to the patient did agree to. Discuss case with Dr. Duarte. EEG, neurology consultation, echo and carotid ordered. Patient was taken to the floor in stable condition - Lab Data Result diagrams: 01/03/21 04:14 01/03/21 04:14 Lab Results 01/02/21 01/02/21 01/02/21 Range/Units 08:07 08:10 08:10 WBC 6.9 (3.8-10.6) k/uL RBC 4.38 (3.80-5.40) m/uL Hgb 14.5 (11.4-16.0) gm/dL Hct 42.4 (34.0-46.0) % MCV 96.9 (80.0-100.0) fL MCH 33.0 (25.0-35.0) pg MCHC 34.1 (31.0-37.0) g/dL RDW 11.6 (11.5-15.5) % Plt Count 203 (150-450) k/uL MPV 7.6 Neutrophils % 70 % Lymphocytes % 19 % Monocytes % 5 % Eosinophils % 4 % Basophils % 1 % Neutrophils # 4.8 (1.3-7.7) k/uL Lymphocytes # 1.3 (1.0-4.8) k/uL Monocytes # 0.3 (0-1.0) k/uL Eosinophils # 0.3 (0-0.7) k/uL Basophils # 0.0 (0-0.2) k/uL PT 9.5 (9.0-12.0) sec INR 0.9 (<1.2) APTT 21.4 L (22.0-30.0) sec Sodium (137-145) mmol/L Potassium (3.5-5.1) mmol/L Chloride (98-107) mmol/L Carbon Dioxide (22-30) mmol/L Anion Gap mmol/L BUN (7-17) mg/dL Creatinine (0.52-1.04) mg/dL Est GFR (CKD-EPI)AfAm (>60 ml/min/1.73 sqM) Est GFR (CKD-EPI)NonAf (>60 ml/min/1.73 sqM) Glucose (74-99) mg/dL POC Glucose (mg/dL) 126 H (75-99) mg/dL POC Glu [employer] ID Holley Bryant Calcium (8.4-10.2) mg/dL Total Bilirubin (0.2-1.3) mg/dL AST (14-36) U/L ALT (4-34) U/L Alkaline Phosphatase (38-126) U/L Creatine Kinase (30-135) U/L Troponin I (0.000-0.034) ng/mL Total Protein (6.3-8.2) g/dL Albumin (3.5-5.0) g/dL Urine Color Urine Appearance (Clear) Urine pH (5.0-8.0) Ur Specific [place] (1.001-1.035) Urine Protein (Negative) Urine Glucose (UA) (Negative) Urine Ketones (Negative) Urine Blood (Negative) Urine Nitrite (Negative) Urine Bilirubin (Negative) Urine Urobilinogen (<2.0) mg/dL Ur Leukocyte Esterase (Negative) Urine RBC (0-5) /hpf Urine WBC (0-5) /hpf Ur Squamous Epith Cells (0-4) /hpf Amorphous Sediment (None) /hpf Hyaline Casts (0-2) /lpf Urine Mucus (None) /hpf Salicylates mg/dL Urine Opiates Screen (NotDetected) Ur Oxycodone Screen (NotDetected) Urine Methadone Screen (NotDetected) Ur Propoxyphene Screen (NotDetected) Acetaminophen ug/mL Ur Barbiturates Screen (NotDetected) U Tricyclic Antidepress (NotDetected) Ur Phencyclidine Scrn (NotDetected) Ur Amphetamines Screen (NotDetected) U Methamphetamines Scrn (NotDetected) U Benzodiazepines Scrn (NotDetected) Urine Cocaine Screen (NotDetected) U Marijuana (THC) Screen (NotDetected) Serum Alcohol mg/dL 01/02/21 01/02/21 01/02/21 Range/Units 08:10 08:10 08:10 WBC (3.8-10.6) k/uL RBC (3.80-5.40) m/uL Hgb (11.4-16.0) gm/dL Hct (34.0-46.0) % MCV (80.0-100.0) fL MCH (25.0-35.0) pg MCHC (31.0-37.0) g/dL RDW (11.5-15.5) % Plt Count (150-450) k/uL MPV Neutrophils % % Lymphocytes % % Monocytes % % Eosinophils % % Basophils % % Neutrophils # (1.3-7.7) k/uL Lymphocytes # (1.0-4.8) k/uL Monocytes # (0-1.0) k/uL Eosinophils # (0-0.7) k/uL Basophils # (0-0.2) k/uL PT (9.0-12.0) sec INR (<1.2) APTT (22.0-30.0) sec Sodium 138 (137-145) mmol/L Potassium 3.8 (3.5-5.1) mmol/L Chloride 108 H (98-107) mmol/L Carbon Dioxide 22 (22-30) mmol/L Anion Gap 8 mmol/L BUN 15 (7-17) mg/dL Creatinine 0.77 (0.52-1.04) mg/dL Est GFR (CKD-EPI)AfAm >90 (>60 ml/min/1.73 sqM) Est GFR (CKD-EPI)NonAf 80 (>60 ml/min/1.73 sqM) Glucose 137 H (74-99) mg/dL POC Glucose (mg/dL) (75-99) mg/dL POC Glu [employer] Worker ID Calcium 9.5 (8.4-10.2) mg/dL Total Bilirubin 0.4 (0.2-1.3) mg/dL AST 130 H (14-36) U/L ALT 79 H (4-34) U/L Alkaline Phosphatase 101 (38-126) U/L Creatine Kinase 70 (30-135) U/L Troponin I <0.012 (0.000-0.034) ng/mL Total Protein 6.8 (6.3-8.2) g/dL Albumin 3.8 (3.5-5.0) g/dL Urine Color Yellow Urine Appearance Cloudy H (Clear) Urine pH 5.0 (5.0-8.0) Ur Specific [place] 1.019 (1.001-1.035) Urine Protein Trace H (Negative) Urine Glucose (UA) Negative (Negative) Urine Ketones Negative (Negative) Urine Blood Negative (Negative) Urine Nitrite Negative (Negative) Urine Bilirubin Negative (Negative) Urine Urobilinogen <2.0 (<2.0) mg/dL Ur Leukocyte Esterase Trace H (Negative) Urine RBC 1 (0-5) /hpf Urine WBC 2 (0-5) /hpf Ur Squamous Epith Cells <1 (0-4) /hpf Amorphous Sediment Rare H (None) /hpf Hyaline Casts 1 (0-2) /lpf Urine Mucus Rare H (None) /hpf Salicylates <1.0 mg/dL Urine Opiates Screen (NotDetected) Ur Oxycodone Screen (NotDetected) Urine Methadone Screen (NotDetected) Ur Propoxyphene Screen (NotDetected) Acetaminophen <10.0 ug/mL Ur Barbiturates Screen (NotDetected) U Tricyclic Antidepress (NotDetected) Ur Phencyclidine Scrn (NotDetected) Ur Amphetamines Screen (NotDetected) U Methamphetamines Scrn (NotDetected) U Benzodiazepines Scrn (NotDetected) Urine Cocaine Screen (NotDetected) U Marijuana (THC) Screen (NotDetected) Serum Alcohol <10 mg/dL 01/02/21 Range/Units 08:10 WBC (3.8-10.6) k/uL RBC (3.80-5.40) m/uL Hgb (11.4-16.0) gm/dL Hct (34.0-46.0) % MCV (80.0-100.0) fL MCH (25.0-35.0) pg MCHC (31.0-37.0) g/dL RDW (11.5-15.5) % Plt Count (150-450) k/uL MPV Neutrophils % % Lymphocytes % % Monocytes % % Eosinophils % % Basophils % % Neutrophils # (1.3-7.7) k/uL Lymphocytes # (1.0-4.8) k/uL Monocytes # (0-1.0) k/uL Eosinophils # (0-0.7) k/uL Basophils # (0-0.2) k/uL PT (9.0-12.0) sec INR (<1.2) APTT (22.0-30.0) sec Sodium (137-145) mmol/L Potassium (3.5-5.1) mmol/L Chloride (98-107) mmol/L Carbon Dioxide (22-30) mmol/L Anion Gap mmol/L BUN (7-17) mg/dL Creatinine (0.52-1.04) mg/dL Est GFR (CKD-EPI)AfAm (>60 ml/min/1.73 sqM) Est GFR (CKD-EPI)NonAf (>60 ml/min/1.73 sqM) Glucose (74-99) mg/dL POC Glucose (mg/dL) (75-99) mg/dL POC Glu [employer] Worker ID Calcium (8.4-10.2) mg/dL Total Bilirubin (0.2-1.3) mg/dL AST (14-36) U/L ALT (4-34) U/L Alkaline Phosphatase (38-126) U/L Creatine Kinase (30-135) U/L Troponin I (0.000-0.034) ng/mL Total Protein (6.3-8.2) g/dL Albumin (3.5-5.0) g/dL Urine Color Urine Appearance (Clear) Urine pH (5.0-8.0) Ur Specific [place] (1.001-1.035) Urine Protein (Negative) Urine Glucose (UA) (Negative) Urine Ketones (Negative) Urine Blood (Negative) Urine Nitrite (Negative) Urine Bilirubin (Negative) Urine Urobilinogen (<2.0) mg/dL Ur Leukocyte Esterase (Negative) Urine RBC (0-5) /hpf Urine WBC (0-5) /hpf Ur Squamous Epith Cells (0-4) /hpf Amorphous Sediment (None) /hpf Hyaline Casts (0-2) /lpf Urine Mucus (None) /hpf Salicylates mg/dL Urine Opiates Screen Not Detected (NotDetected) Ur Oxycodone Screen Not Detected (NotDetected) Urine Methadone Screen Not Detected (NotDetected) Ur Propoxyphene Screen Not Detected (NotDetected) Acetaminophen ug/mL Ur Barbiturates Screen Not Detected (NotDetected) U Tricyclic Antidepress Not Detected (NotDetected) Ur Phencyclidine Scrn Not Detected (NotDetected) Ur Amphetamines Screen Not Detected (NotDetected) U Methamphetamines Scrn Not Detected (NotDetected) U Benzodiazepines Scrn Not Detected (NotDetected) Urine Cocaine Screen Not Detected (NotDetected) U Marijuana (THC) Screen Not Detected (NotDetected) Serum Alcohol mg/dL Disposition Clinical Impression: Syncope Disposition: ADMITTED IP TO THIS [facility] Condition: Stable Is patient prescribed a controlled substance at d/c from ED?: No Decision to Admit Reason: Admit from EC Decision Date: 01/02/21 Decision Time: 09:58
[2021-01-02] MEDS ORDERED: NALOXONE 0.4 MG/ML 1 ML VIAL IV PRN (10:00)
[2021-01-02] MEDS ORDERED: ACETAMINOPHEN TAB 325 MG TAB PO STA (10:32)
--- NOTE | 2021-01-02 10:37 | US ---
EXAMINATION TYPE: US carotid duplex BILAT DATE OF EXAM: 01/02/2021 COMPARISON: NONE CLINICAL HISTORY: syncope. Syncope and fall today, no h/o stroke EXAM MEASUREMENTS: RIGHT: Peak Systolic Velocity (PSV) cm/sec ----- Right CCA: 75.4 ----- Right ICA: 62.1 ----- Right ECA: 68.3 ICA/CCA ratio: 0.8 RIGHT: End Diastole cm/sec ----- Right CCA: 17.1 ----- Right ICA: 26.5 ----- Right ECA: 7.2 LEFT: Peak Systolic Velocity (PSV) cm/sec ----- Left CCA: 66.4 ----- Left ICA: 82.6 ----- Left ECA: 61.7 ICA/CCA ratio: 1.2 LEFT: End Diastole cm/sec ----- Left CCA: 19.4 ----- Left ICA: 82.6 ----- Left ECA: 6.9 VERTEBRALS (direction of flow): Right Vertebral: Antegrade Left Vertebral: Antegrade Rhythm: Normal Lin scale images showed no significant focal plaque. Velocity measurements and ratios within normal limits in the visualized portion of both internal carotid arteries. IMPRESSION: No hemodynamically significant stenosis seen in either internal carotid artery. Criteria for Assigning % of Stenosis / Diameter reduction (Estimation based on the indirect measurements of the internal carotid artery velocities (ICA PSV). 1. Normal (no stenosis)=ICA PSV < 125 cm/s: ratio < 2.0: ICA EDV<40 cm/s. 2. Less than 50% stenosis=ICA PSV < 125 cm/s: ratio < 2.0: ICA EDV<40 cm/s. 3. 50 to 69% stenosis=ICA PSV of 125 to 230 cm/s: ration 2.0 ? 4.0: ICA EDV 40-100 cm/s. 4. Greater than 70% stenosis to near occlusion= ICA PSV > 230 cm/s: ratio > 4.0: ICA EDV > 100 cm/s. 5. Near occlusion= ICA PSV velocities may be low or undetectable: variable ratio and ICA EDV. 6. Total occlusion=unable to detect flow.
[2021-01-02] MEDS ORDERED: levETIRAcetam IV 1,000 MG in SALINE 1 100ML.BAG IVPB STA (12:14)
[2021-01-02] MEDS: ASPIRIN 81 MG PO SCH (12:25)
[2021-01-02] MEDS: MULTIVITAMINS, THERA 1 EACH TAB PO SCH (12:25)
[2021-01-02] MEDS: CHOLESTYRAMINE (WITH SUGAR) 4 GM PACKET PO SCH ×2 (12:25→21:40)
[2021-01-02] MEDS: CYANOCOBALAMIN 500 MCG TAB PO SCH (12:25)
--- NOTE | 2021-01-02 12:25 | P.CNNES ---
History of Present Illness Consult date: 01/02/21 Requesting physician: Roberta Melgar Reason for Consult: syncope concern for seizure History of Present Illness: This is a 65-year-old woman with history of cholecystectomy that presented to the emergency department on the 01/02/2021 for episode of unresponsiveness. The patient is at bedside (Eugenio). The patient's was able to provide a history since the patient was unable what transpired today. Per the patient he was awake and here. The patient's was awake and he hurt his had a screen and he asked her if she was okay and she stated yes. When she got up and took a few steps all of a sudden the she became unresponsive and the fell on the ground face down. He heard some gurgling noise and and he felt the patient stiffen up of all extremities but he said everything was moving so fast he couldn't make out the details. Per the patient she didn't have any jerk in of any extremities. The episode of unresponsive lasted for at least 5 minutes then this low patient was slowly responding back. Initially when the EMS arrived at the scene as she was oriented 1 but upon arrival to our facility she was answering questions appropriately but there is delay and and answering per the ED team. Patient does not recall what transpired today. She denies of urinary or bowel incontinence today. She denies of history of seizures. She stated that that when she wakes up in the last couple years she has a lot of saliva in her throat but it's not on a daily basis. She said that she had that covert 19 vaccine on Saturday over the left arm and she filters like soreness and redness over the left arm. Otherwise denies any fever, cough. As stated above she denies any history of seizures. Regarding her history she stated it was normal vaginal delivery without any complication. She was a product of term gestation. Denies any family history of seizure. Patient stated that she drinks a small glass of wine around 4-6 ounces daily. Otherwise denies any overconsumption of alcohol or having alcohol withdrawal seizures in the past. He stated that her liver functions in the past was elevated because of her cholecystectomy. Workup in the ED consisted of: Initial vital signs: His blood pressure of 143/101, heart rate of 104, respiratory of 18, temperature of 97.9 Fahrenheit oral and pulse ox of 94% at room air. CT of the head is reported as no acute intracranial hemorrhage or midline shift is seen. CT of cervical spine and is there is no acute fracture or dislocation evident in the cervical spine. In the body that show multilevel facet degenerative changes contributing to multilevel bilateral neuroforaminal narrowing greatest in the left C3-C4 and C5-C6 and slight right C6 for C5. Carotid duplex was done and is reported as no hemodynamically significant stenosis seen in either internal carotid artery. White blood cell is 6.9 which is normal. The sodium is 138 which is normal. Initial POC glucose is 126 and the serum glucose is 137. The AST is 1:30 and that ALT is 79. Serum alcohol level was less than 10. That salicylates <1, Acetaminiphen <10 and the basic urine drug screen is negative. Urinalysis appears cloudy, extensors is trace, urine white blood cell is 2. Review of Systems Review of system: The 12 point system was reviewed and apparent positive and negative per HPI. Past Medical History Past Medical History: No Reported History History of Any Multi-Drug Resistant Organisms: None Reported Past Surgical History: Tonsillectomy Past Anesthesia/Blood Transfusion Reactions: No Reported Reaction Past Psychological History: No Psychological Hx Reported Smoking Status: Never smoker Past Alcohol Use History: Daily Past Drug Use History: None Reported - Past Family History Father Family Medical History: Cancer Additional Family Medical History / Comment(s): . Mother Family Medical History: Diabetes Mellitus Sister(s) Family Medical History: Cancer Additional Family Medical History / Comment(s): Uterine CA; Medications and Allergies Home Medications Medication Instructions Recorded Confirmed Type Cyanocobalamin (Vitamin B-12) 1,000 mcg PO DAILY 02/11/17 01/02/21 History [Vitamin B-12] Multivitamins, Thera [Multivitamin 1 tab PO DAILY 02/11/17 01/02/21 History (formulary)] Calcium Carbonate [Calcium] 600 mg PO DAILY 01/02/21 01/02/21 History Cholestyramine (with Sugar) 4 gm PO BID 01/02/21 01/02/21 History [Cholestyramine Packet] Allergies Allergy/AdvReac Type Severity Reaction Status Date / Time amoxicillin AdvReac Nausea & Verified 01/02/21 09:39 Vomiting & Diarrhea codeine AdvReac Diarrhea Verified 01/02/21 09:39 Physical Examination - Vital Signs Vital Signs: Vital Signs Temp Pulse Resp BP Pulse Ox 01/02/21 10:28 99.4 F 100 16 122/87 96 01/02/21 10:16 96 16 136/91 95 01/02/21 08:51 98 18 133/85 94 L 01/02/21 08:26 99 15 135/85 95 01/02/21 08:00 97.9 F 104 H 18 143/101 94 L Intake and Output 01/01/21 01/02/21 01/02/21 22:59 06:59 14:59 Other: Weight 54.431 kg GENERAL: The patient is lying in bed and is not in acute distress. CHEST: The heart rate is regular rate rhythm. No murmurs to auscultation. No carotid bruit bilaterally. LUNG: Clear to auscultation bilaterally no wheezing noted throughout. Not labored breathing. ABDOMEN/GI: Bowel sounds present in all 4 quadrants. No tenderness to palpation throughout. INTEGUMENTARY: Erythema, warm over the left upper extremity/shoulder region. NEUROLOGICAL: Higher mental function: The patient is awake, alert, oriented to self, place and time. Patient is following commands. No aphasia and no neglect. Cranial nerves: The pupils are round, equal and reactive to light and accommodation. Visual cardona are full to confrontation throughout. Extraocular movement is intact no nystagmus is noted. Facial sensation is normal to touch throughout. The facial strength is normal throughout. Hearing is normal bilaterally to hand rub. Tongue is midline and moved [id number] without any difficulty. No dysarthria is noted. Tongue bite noted over the lateral right side. Shoulder shrug is normal bilaterally. Motor: Gait is normal. The strength is 5 over 5 throughout. Normal tone and bulk. Cerebellum: Normal finger to nose heel to colin bilaterally. Sensation: Sensation is normal to touch throughout. Reflexes (right/left): 2+ throughout. Plantars are downgoing bilaterally. Results - Laboratory Findings CBC and BMP: 01/02/21 08:10 01/02/21 08:10 Abnormal Lab Findings: Abnormal Labs 01/02/21 01/02/21 01/02/21 08:07 08:10 08:10 APTT 21.4 L Chloride Glucose POC Glucose (mg/dL) 126 H AST ALT Urine Appearance Cloudy H Urine Protein Trace H Ur Leukocyte Esterase Trace H Amorphous Sediment Rare H Urine Mucus Rare H 01/02/21 08:10 APTT Chloride 108 H Glucose 137 H POC Glucose (mg/dL) AST 130 H ALT 79 H Urine Appearance Urine Protein Ur Leukocyte Esterase Amorphous Sediment Urine Mucus Assessment and Plan Assessment: This is a 65-year-old woman that presented to the emergency department on the 01/02/2021 for episode of unresponsiveness lasting about 5 minutes. Per patient she had stiffening of extremities and on examination had right lateral tongue bite New onset seizure (Episode of unresponsiveness with stiffenening, and right la teral tongue bite) Elevated liver function test with AST more than ALT (130/79) Cervical spondylosis (narrowing greatest in the left C3-C4 and C5-C6 and slight right C6 for C5) History of cholecystectomy (about 4 years ago) Plan: CT of the head is reported as no acute intracranial hemorrhage or midline shift is seen. CT of cervical spine and is there is no acute fracture or dislocation evident in the cervical spine. In the body that show multilevel facet degenerative changes contributing to multilevel bilateral neuroforaminal narrowing greatest in the left C3-C4 and C5-C6 and slight right C6 for C5. Carotid duplex was done and is reported as no hemodynamically significant stenosis seen in either internal carotid artery. A routine EEG is ordered by the ED team is pending. I started the patient on Keppra 500 mg 1 tablet twice a day since this is a seizure episode that she had today and she stated that she has episodes where she wakes up she has a lot of saliva I'm not sure if these episodes are subclinical seizures that she's having or unrelated to seizures. I loaded the patient with Keppra 1 g once right now. Also 2-D echo was ordered by the ED team. We'll get MRI of the brain seizure protocol Ordered ammonia level Seizure protocol Patient is on cardiac monitoring and to be continued Regarding the left erythema over the arm and shoulder where she received COVID- 19 vaccine (2nd dose) area I recommend infection disease consult. Not sure if this is a normal reaction versus underlying cellulitis Because of episode of unresponsiveness last seizure, patient was notified to avoid driving for 6 month until no further episodes of unresponsiveness. To avoid the [place], heavy machinery or swimming unassisted that. The plan was discussed with the patient as well as the patient's nurse. Thank you for the consultation. Khris Garcia M.D. Neuro-hospitalist Time with Patient: Greater than 30
--- NOTE | 2021-01-02 13:00 | ECHOF ---
Referral Reason:syncope MEASUREMENTS -------- HEIGHT: 165.1 cm WEIGHT: 54.4 kg BP: 122/87 RVIDd: 2.6 cm (< 3.3) IVSd: 1.2 cm (0.6 - 1.1) LVIDd: 3.2 cm (3.9 - 5.3) LVPWd: 1.0 cm (0.6 - 1.1) IVSs: 1.5 cm LVIDs: 2.5 cm LVPWs: 1.7 cm LA Diam: 2.8 cm (2.7 - 3.8) LAESV Index (A-L): 21.57 ml/m Ao Diam: 3.6 cm (2.0 - 3.7) AV Cusp: 2.0 cm (1.5 - 2.6) MV EXCURSION: 10.434 mm (> 18.000) MV EF SLOPE: 36 mm/s (70 - 150) EPSS: 1.0 cm AR PHT: 622 ms RAP: 5.00 mmHg RVSP: 27.00 mmHg FINDINGS -------- Sinus rhythm. This was a technically good study. The left ventricular size is normal. There is borderline concentric left ventricular hypertrophy. Overall left ventricular systolic function is normal with, an EF between 55 - 60 %. The right ventricle is normal in size. Normal LA size by volume 22+/-6 ml/m2. The right atrium is normal in size. Interatrial and interventricular septum intact. There is [id number] aortic regurgitation. Mild mitral regurgitation is present. Mild tricuspid regurgitation present. Right ventricular systolic pressure is normal at < 35 mmHg. Trace/mild (physiologic) pulmonic regurgitation. Ascending AO anurysm up to 41 mm IVC Not well visulized. There is no pericardial effusion. CONCLUSIONS -------- 1. The left ventricular size is normal. 2. There is borderline concentric left ventricular hypertrophy. 3. Overall left ventricular systolic function is normal with, an EF between 55 - 60 %. 4. There is qsfi-wo-yqgoderj aortic regurgitation. 5. Mild mitral regurgitation is present. 6. Mild tricuspid regurgitation present. 7. Trace/mild (physiologic) pulmonic regurgitation. 8. Ascending AO anurysm up to 41 mm 9. There is no pericardial effusion. MEDICAL ART THERAPIST: Katiana Ogden [facility] [[email or web address]]
--- NOTE | 2021-01-02 18:23 | MR ---
EXAMINATION TYPE: MR brain wo con DATE OF EXAM: 01/02/2021 COMPARISON: None HISTORY: Seizure, acute syncope Multiplanar multiecho imaging of the brain was performed without contrast. There is cerebral cortical atrophy. There is no mass effect nor midline shift. There is no sign of in tracranial hemorrhage. Diffusion images show no evidence of an acute infarct. The brainstem is intact . Corpus callosum is intact. Sella turcica appears normal. There is no evidence of posterior fossa ma ss. There is mild mucosal thickening in the ethmoid air cells. IMPRESSION: There is mild cerebral atrophy appropriate for Age. No acute intracranial abnormality. no evidence of high or white matter infarct.
[2021-01-02] MEDS: levETIRAcetam 500 MG TAB PO SCH (21:40)
--- NOTE | 2021-01-02 22:12 | P.HPIM ---
History of Present Illness H&P Date: 01/02/21 Chief Complaint: Past out History of presenting complaint: This is a very pleasant 65-year-old patient, follows with Dr. David Whittaker. Chronic stable medical conditions include hiatal hernia, diverticulosis, thyroid nodule. Patient otherwise in good health. She was brought in by her . Who provided the history to the ER physician. Patient had taken a fall last night. She woke him up morning with a bowling sort. He had asked her how she was doing she sent to doing fine. She then got up from the bed and took up 10 steps and she fell flat on her face. There was no shaking. But patient became stiff and unresponsive for about 5 minutes before becoming arousable. She was confused upon waking up. When EMS arrived she was AO 1 only. In the ER she did also question but somewhat delayed. Denies any urinary or respiratory symptoms. Patient this morning was seen by the neurologist Dr. Solis. But does not recall right having talked to him. No chest pain or palpitations Review of systems: GEN.: Tired EYES: None HEENT: None NECK: None RESPIRATORY: None CARDIOVASCULAR: None GASTROINTESTINAL: None GENITOURINARY: None MUSCULOSKELETAL: None LYMPHATICS: None HEMATOLOGICAL: None PSYCHIATRY: None NEUROLOGICAL: None Past medical history to include: Murmur, hiatal hernia, colon polyps benign, diverticular disease, thyroid nodule, COVID immunization on December 30 this year Social history: . Homemaker. Smoked for 11 years stopped in 1982. Getting sick loss of wine a day. Physical examination: VITAL SIGNS: 97.9, 104, 18, 1 3585, 95% on room air-upon presentation GENERAL: BMI 20, laying in bed, awake slightly tired. EYES: Pupils equal. Conjunctiva normal. HEENT: External appearance of nose and ears normal, oral cavity grossly normal. NECK: JVD not raised; masses not palpable. HEART: First and second heart sounds are normal; no edema. LUNGS: Respiratory rate normal; clear to auscultation. ABDOMEN: Soft, nontender, liver spleen not palpable, no masses palpable. PSYCH: Alert and oriented x3; mood and affect normal slightly slow in answering questions. NEUROLOGICAL: Cranial nerves grossly intact; no facial asymmetry, power and sensation grossly intact. LYMPHATICS: No lymph nodes palpable in the axilla and neck INVESTIGATIONS, reviewed in the clinical context: White count 6.9 hemoglobin 14.5 platelets 203 potassium 3.8 creatinine 0.77 Glucose 137 AST 1:30 ALT 79 Troponin I 3 negative Urine drug screen negative Coronavirus [PCR]-not detected Chest x-ray film personally reviewed by me-possible infiltrate right base EKG tracing personally reviewed by me-normal sinus rhythm Carotid Doppler no significant stenosis 2-D echocardiogram EF 55-60%. Brain MRI: Changes compatible with age Assessment and plan: -This is a patient who is rather in good health. Woken up this morning with a gurgling sound in the throat. Patient took 10 steps and she fell down. Was on the floor rather stiff for about 5 minutes. She was confused afterwards. Rather slow to recover in the ER 2. Patient does not recollect having talked with the neurologist this morning. Most likely this was a first time seizure episode for the patient. With a postictal state. This noted on the EKG. And would unlikely cause all the symptoms even though patient remains in sinus rhythm. Neuro checks are being carried out. Seizure precautions. EEG. Neurology was consulted -Hiatal hernia asymptomatic -Colonic diverticular disease, asymptomatic -Elevated liver enzymes. We'll do a liver ultrasound. -DVT prophylaxis with subcu Lovenox Past Medical History Past Medical History: No Reported History Additional Past Medical History / Comment(s): Murmur, hiatal hernia, benign colon polyp, diverticular disease, thyroid nodule, elevated LFT when pt had cholecystitis. Pt currently has reddened L upper arm/states she received covid immunization 12/30/20. History of Any Multi-Drug Resistant Organisms: None Reported Past Surgical History: Tonsillectomy Additional Past Surgical History / Comment(s): D&C, colonoscopies/benign polypectomy Past Anesthesia/Blood Transfusion Reactions: No Reported Reaction Past Psychological History: No Psychological Hx Reported Smoking Status: Never smoker Past Alcohol Use History: Daily Past Drug Use History: None Reported - Past Family History Father Family Medical History: Cancer Additional Family Medical History / Comment(s): . Mother Family Medical History: Diabetes Mellitus Sister(s) Family Medical History: Cancer Additional Family Medical History / Comment(s): Uterine CA; Medications and Allergies Home Medications Medication Instructions Recorded Confirmed Type Cyanocobalamin (Vitamin B-12) 1,000 mcg PO DAILY 02/11/17 01/02/21 History [Vitamin B-12] Multivitamins, Thera [Multivitamin 1 tab PO DAILY 02/11/17 01/02/21 History (formulary)] Calcium Carbonate [Calcium] 600 mg PO DAILY 01/02/21 01/02/21 History Cholestyramine (with Sugar) 4 gm PO BID 01/02/21 01/02/21 History [Cholestyramine Packet] Allergies Allergy/AdvReac Type Severity Reaction Status Date / Time amoxicillin AdvReac Nausea & Verified 01/02/21 09:39 Vomiting & Diarrhea codeine AdvReac Diarrhea Verified 01/02/21 09:39 Physical Exam Vitals: Vital Signs Temp Pulse Pulse Resp BP BP Pulse Ox 01/02/21 19:55 101 H 16 01/02/21 19:10 98.5 F 101 H 16 116/74 97 01/02/21 13:15 97.8 F 106 H 17 123/79 97 01/02/21 12:22 97.6 F 101 H 17 131/81 94 L 01/02/21 11:43 98.7 F 98 16 122/87 100 01/02/21 10:28 99.4 F 100 16 122/87 96 01/02/21 10:16 96 16 136/91 95 01/02/21 08:51 98 18 133/85 94 L 01/02/21 08:26 99 15 135/85 95 01/02/21 08:00 97.9 F 104 H 18 143/101 94 L Intake and Output 01/02/21 01/02/21 01/02/21 06:59 14:59 22:59 Intake Total 118 222 Balance 118 222 Intake: Oral 118 222 Other: # Voids 2 Weight 54.431 kg Results CBC & Chem 7: 01/02/21 08:10 01/02/21 08:10 Labs: Abnormal Lab Results - Last 24 Hours (Table) 01/02/21 01/02/21 01/02/21 Range/Units 08:07 08:10 08:10 APTT 21.4 L (22.0-30.0) sec Chloride (98-107) mmol/L Glucose (74-99) mg/dL POC Glucose (mg/dL) 126 H (75-99) mg/dL AST (14-36) U/L ALT (4-34) U/L Urine Appearance Cloudy H (Clear) Urine Protein Trace H (Negative) Ur Leukocyte Esterase Trace H (Negative) Amorphous Sediment Rare H (None) /hpf Urine Mucus Rare H (None) /hpf 01/02/21 Range/Units 08:10 APTT (22.0-30.0) sec Chloride 108 H (98-107) mmol/L Glucose 137 H (74-99) mg/dL POC Glucose (mg/dL) (75-99) mg/dL AST 130 H (14-36) U/L ALT 79 H (4-34) U/L Urine Appearance (Clear) Urine Protein (Negative) Ur Leukocyte Esterase (Negative) Amorphous Sediment (None) /hpf Urine Mucus (None) /hpf Thrombosis Risk Factor Assmnt - Choose All That Apply Any of the Below Risk Factors Present?: Yes Other Risk Factors: Yes Each Risk Factor Represents 2 Points: Age 61-74 years Other congenital or acquired thrombophilia - If yes, enter type in comment: No Thrombosis Risk Factor Assessment Total Risk Factor Score: 2 Thrombosis Risk Factor Assessment Level: Low Risk
[2021-01-02] MEDS: ENOXAPARIN 40 MG/0.4 ML SYRINGE SQ SCH (23:37)
[2021-01-03 07:41] VITALS: RESP 18
[2021-01-03] MEDS: CYANOCOBALAMIN 500 MCG TAB PO SCH (07:51)
[2021-01-03] MEDS: MULTIVITAMINS, THERA 1 EACH TAB PO SCH (07:51)
[2021-01-03] MEDS: ASPIRIN 81 MG PO SCH (07:51)
[2021-01-03] MEDS: ENOXAPARIN 40 MG/0.4 ML SYRINGE SQ SCH (07:51)
[2021-01-03] MEDS: levETIRAcetam 500 MG TAB PO SCH (07:51)
[2021-01-03] MEDS: CHOLESTYRAMINE (WITH SUGAR) 4 GM PACKET PO SCH (07:51)
[2021-01-03 09:08] LABS: Basophils # (A) 0.03 X 10*3/uL (0.00-0.10); Basophils % (A) 0.4 %; Eosinophils # (A) 0.09 X 10*3/uL (0.04-0.35); Eosinophils % (A) 1.3 %; HCT 35.5 % (37.2-46.3); HGB 12.1 g/dL (12.0-15.0); Lymphocytes # (A) 1.71 X 10*3/uL (0.90-5.00); Lymphocytes % (A) 23.8 %; MCH 32.8 pg (27.0-32.0); MCHC 34.1 g/dL (32.0-37.0); MCV 96.2 fL (80.0-97.0); Mean Platelet Volume 11.4 fL (9.5-12.2); Monocytes # (A) 0.75 X 10*3/uL (0.20-1.00); Monocytes % (A) 10.4 %; Neutrophils # (A) 4.59 X 10*3/uL (1.80-7.70); Neutrophils % (A) 63.7 %; Platelet Count 229 X 10*3/uL (140-440); RBC 3.69 X 10*6/uL (4.10-5.20); RDW 11.8 % (11.5-14.5)
--- NOTE | 2021-01-03 10:22 | P.PN ---
Subjective Progress Note Date: 01/03/21 Patient was seen at bedside and she stated she is back to baseline. Per the patient's nurse no further jerking of any extremities of episode of unresponsiveness. Objective - Vital Signs Vital signs: Vital Signs Temp 99.0 F 01/03/21 06:50 Pulse 93 01/03/21 06:50 Resp 18 01/03/21 06:50 BP 105/63 01/03/21 06:50 Pulse Ox 93 L 01/03/21 06:50 Intake & Output 01/02/21 01/03/21 01/03/21 18:59 06:59 18:59 Intake Total 340 Balance 340 Weight 54.431 kg Intake: Oral 340 Other: # Voids 2 1 - Exam GENERAL: The patient is lying in bed and is not in acute distress. NEUROLOGICAL: Higher mental function: The patient is awake, alert, oriented to self, place and time. Patient is following commands. No aphasia and no neglect. Cranial nerves: The pupils are round, equal and reactive to light and accommodation. Visual cardona are full to confrontation throughout. Extraocular movement is intact no nystagmus is noted. Facial sensation is normal to touch throughout. The facial strength is normal throughout. Hearing is normal bilaterally to hand rub. Tongue is midline and moved [id number] without any difficulty. No dysarthria is noted. Tongue bite noted over the lateral right side. Shoulder shrug is normal bilaterally. Motor: Gait is normal. The strength is 5 over 5 throughout. Normal tone and bulk. Cerebellum: Normal finger to nose heel to colin bilaterally. Sensation: Sensation is normal to touch throughout. Reflexes (right/left): 2+ throughout. Plantars are downgoing bilaterally. - Labs CBC & Chem 7: 01/03/21 04:14 01/03/21 04:14 Labs: Abnormal Lab Results - Last 24 Hours (Table) 01/03/21 Range/Units 04:14 RBC 3.69 L (4.10-5.20) X 10*6/uL Hct 35.5 L (37.2-46.3) % MCH 32.8 H (27.0-32.0) pg Assessment and Plan Assessment: This is a 65-year-old woman that presented to the emergency department on the 01/02/2021 for episode of unresponsiveness lasting about 5 minutes. Per patient she had stiffening of extremities and on examination had right lateral tongue bite New onset seizure (Episode of unresponsiveness with stiffenening, and right lateral tongue bite) Elevated liver function test with AST more than ALT (130/79) Cervical spondylosis (narrowing greatest in the left C3-C4 and C5-C6 and slight right C6 for C5) History of cholecystectomy (about 4 years ago) Plan: CT of the head is reported as no acute intracranial hemorrhage or midline shift is seen. CT of cervical spine and is there is no acute fracture or dislocation evident in the cervical spine. In the body that show multilevel facet degenerative changes contributing to multilevel bilateral neuroforaminal narrowing greatest in the left C3-C4 and C5-C6 and slight right C6 for C5. Carotid duplex was done and is reported as no hemodynamically significant mari nosis seen in either internal carotid artery. Routine EEG is ordered by the ED team is pending. Continue Keppra 500 mg 1 tablet twice a day since this is a seizure episode that she had today and she stated that she has episodes where she wakes up she has a lot of saliva I'm not sure if these episodes are subclinical seizures that she's having or unrelated to seizures. MRI the brain is reported as there is mild cerebral atrophy appropriate for age. No acute intracranial abnormality. No evidence of high or white matter infarct. 2-D echo was reported as borderline concentric left ventricular atrophy. Ejection fraction 55-60%. Mild to moderate aortic regurgitation. Normal left atrial size by volume. ammonia level <9. Seizure precaution. Patient is on cardiac monitoring and to be continued Regarding the left erythema over the arm and shoulder where she received COVID- 19 vaccine (2nd dose) area I recommend infection disease consult. Not sure if this is a normal reaction versus underlying cellulitis Because of episode of unresponsiveness last seizure, patient was notified to avoid driving for 6 month until no further episodes of unresponsiveness. To avoid the [place], heavy machinery or swimming unassisted that. EEG: Pre[place] report: Show occasional to frequent polymorphic delta slowing over bilateral temporal (right > left) without evolution to seizure suggestive of focal cerebral dysfunction. There are no epileptiform discharges or seizure on EEG. Follow up with a neurologist within 1-2 weeks as an outpatient. She and her were give two neurologists she can follow-up with and recommended to get residential EEG or epilepsy monitoring unit as outpatient. There is no further work-up needed. She is clear from neurology stand point. The plan was discussed with the patient as well as the patient's nurse. Khris Garcia M.D. Neuro-hospitalist Time with Patient: Greater than 30
[2021-01-03 10:29] LABS: African American GFR (CKD) 103.9 (60.0-200.0); Anion Gap 8.2 mmol/L (4.00-12.00); BUN/Creat Ratio 18.57 Ratio (12.00-20.00); Calcium 8.6 mg/dL (8.7-10.3); Carbon Dioxide 23.8 mmol/L (21.6-31.8); Non-African American GFR(CKD) 89.7 (60.0-200.0); Potassium 4.1 mmol/L (3.5-5.5)
[2021-01-03 14:10] VITALS: BP 126/73; PULSE 86; TEMP 98.1
--- NOTE | 2021-01-03 14:38 | EEG ---
ELECTROENCEPHALOGRAM REPORT DATE OF SERVICE: 01/03/2021. CLINICAL HISTORY: This is a 65-year-old female with an episode of unresponsiveness, stiffening of the body. This video EEG is obtained to evaluate for seizure and epileptiform activity. RELEVANT MEDICATION: Keppra. EEG TYPE: A routine 21 channel EEG is performed with video using the 10/20 electrode placement system. DESCRIPTION: Wakefulness and drowsiness are obtained. During wakefulness, there is a posterior dominant rhythm of low to moderate voltage, reactive, well modulated, of 8-8.5 hertz activity. During drowsiness, there is slowing and attenuation of the background activity. There was no physiological stage 2 sleep seen. There are occasional to frequent 2.5-3.5 nonrhythmic polymorphic delta slowing over the bilateral temporal region and seems at times more over the right temporal more than the left without any evolution to seizure. Interictal and ictal are none. ACTIVATION PROCEDURE: Photic stimulation did not evoke a posterior driving response. Hyperventilation did not evoke any abnormality. CLINICAL INTERPRETATION: This is an abnormal routine EEG. The occasional to frequent nonrhythmic polymorphic delta slowing over bilateral temporal (right > left) is suggestive of focal cerebral dysfunction. There are no epileptiform discharges or seizure on the EEG. Clinical correlation is recommended. RECOMMENDATIONS: I highly recommend the patient to get long-term EEG or an epilepsy monitoring unit (EMU) as an outpatient for further evaluation. MMODL / CASSN: [id number] / DANIELLE
--- NOTE | 2021-01-03 19:25 | P.DS ---
Providers Date of admission: 01/02/21 10:00 Expected date of discharge: 01/03/21 Attending physician: Ugo Duarte Consults: 01/02/21 10:04 Consult Physician Urgent Consulting Provider: Khris Garcia Consult Reason/Comments: acute syncope vs seizure Do you want consulting provider notified?: Yes Primary care physician: [facility] Course: Chief Complaint: Past out History of presenting complaint: This is a very pleasant 65-year-old patient, follows with Dr. David Diaz. Chronic stable medical conditions include hiatal hernia, diverticulosis, thyroid nodule. Patient otherwise in good health. She was brought in by her . Who provided the history to the ER physician. Patient had taken a fall last night. She woke him up morning with a gurgling sound. He had asked her how she was doing, she said- doing fine. She then got up from the bed and took up 10 steps and she fell flat on her face. There was no shaking. But patient became stiff and unresponsive for about 5 minutes before becoming arousable. She was confused upon waking up. When EMS arrived she was AO 1 only. In the ER she answer question but somewhat delayed. Denies any urinary or respiratory symptoms. Patient this morning was seen by the neurologist Dr. Garcia. But does not recall having talked to him. No chest pain or palpitations Today-looks and feels better. Had EEG that was abnormal. Occasional to frequent nonrhythmic polymorphic delta slowing oh by temp oral suggestive of focal cerebral dysfunction. No epileptiform discharges. MRI of the brain unremarkable. Patient was seen by Dr. Ellison from neurology. Patient placed on Keppra. Patient to follow-up with neurology as an outpatient. Not allowed to drive. Seizure precautions. Discussion and discharge planning more than 35 minutes Consultation: Dr. Ellison from neurology Past medical history to include: Murmur, hiatal hernia, colon polyps benign, diverticular disease, thyroid nodule, COVID immunization on December 30 this year Social history: . Homemaker. Smoked for 11 years stopped in 1982. Getting sick loss of wine a day. Physical examination: VITAL SIGNS: 99, 86, 18, 126/73, 96% room air GENERAL: BMI 20, laying in bed, awake comfortable smiling EYES: Pupils equal. Conjunctiva normal. HEENT: External appearance of nose and ears normal, oral cavity grossly normal. NECK: JVD not raised; masses not palpable. HEART: First and second heart sounds are normal; no edema. LUNGS: Respiratory rate normal; clear to auscultation. ABDOMEN: Soft, nontender, liver spleen not palpable, no masses palpable. PSYCH: Alert and oriented x3; mood and affect normal slightly slow in answering questions. NEUROLOGICAL: Cranial nerves grossly intact; no facial asymmetry, power and sensation grossly intact. INVESTIGATIONS, reviewed in the clinical context: EEG:Occasional to frequent nonrhythmic polymorphic delta slowing oh by temp oral suggestive of focal cerebral dysfunction. No epileptiform discharges White count 6.9 hemoglobin 14.5 platelets 203 potassium 3.8 creatinine 0.77 Glucose 137 AST 1:30 ALT 79 Troponin I 3 negative Urine drug screen negative Coronavirus [PCR]-not detected Chest x-ray film personally reviewed by me-possible infiltrate right base EKG tracing personally reviewed by me-normal sinus rhythm Carotid Doppler no significant stenosis 2-D echocardiogram EF 55-60%. Brain MRI: Changes compatible with age Assessment and plan: -Probable new onset of seizure activity. Started on Keppra. For further workup outpatient by neurology. -Hiatal hernia asymptomatic -Colonic diverticular disease, asymptomatic -Elevated liver enzymes. To be followed up by PCP as an outpatient. I did call the patient at home in the evening and reminded her of the same -DVT prophylaxis with subcu Lovenox Disposition: Home Seizure precautions and no driving until further notice. Patient Condition at Discharge: Stable Plan - Discharge Summary Discharge Rx Participant: No New Discharge Prescriptions: New Aspirin 81 mg PO DAILY chew levETIRAcetam [Keppra] 500 mg PO Q12HR #60 tab Continue Cyanocobalamin (Vitamin B-12) [Vitamin B-12] 1,000 mcg PO DAILY Multivitamins, Thera [Multivitamin (formulary)] 1 tab PO DAILY Calcium Carbonate [Calcium] 600 mg PO DAILY Cholestyramine (with Sugar) [Cholestyramine Packet] 4 gm PO BID Discharge Medication List Cyanocobalamin (Vitamin B-12) [Vitamin B-12] 1,000 mcg PO DAILY 02/11/17 [History] Multivitamins, Thera [Multivitamin (formulary)] 1 tab PO DAILY 02/11/17 [History] Calcium Carbonate [Calcium] 600 mg PO DAILY 01/02/21 [History] Cholestyramine (with Sugar) [Cholestyramine Packet] 4 gm PO BID 01/02/21 [History] Aspirin 81 mg PO DAILY chew 01/03/21 [Rx] levETIRAcetam [Keppra] 500 mg PO Q12HR #60 tab 01/03/21 [Rx] Follow up Appointment(s)/Referral(s): Heber Rodriguez MD [Primary Care Provider] - 1-2 days Patient Instructions/Handouts: New-Onset Seizure in Adults (DC) Activity/Diet/Wound Care/Special Instructions: follow up with a neurologist @ [facility]- [phone] within 1-2 weeks no driving till further notice
== END 2021-01-03 16:38 ==
LOC: EC 07:58 → 6NMEDSUR 10:00
PROVIDERS: ADMIT Hospitalist; ATTEND Hospitalist
DX: R55 Syncope and collapse (principal); R41.0 Disorientation, unspecified; R51.9 Headache, unspecified; K44.9 Diaphragmatic hernia without obstruction or gangrene; K57.30 Diverticulosis of large intestine without perforation or abscess without bleeding; R74.8 Abnormal levels of other serum enzymes; R94.5 Abnormal results of liver function studies; L53.9 Erythematous condition, unspecified; M47.812 Spondylosis without myelopathy or radiculopathy, cervical region; E04.1 Nontoxic single thyroid nodule; R01.1 Cardiac murmur, unspecified; Z88.5 Allergy status to narcotic agent; Z88.2 Allergy status to sulfonamides; Z90.49 Acquired absence of other specified parts of digestive tract; Z80.49 Family history of malignant neoplasm of other genital organs; Z86.010 Personal history of colon polyps; Z87.891 Personal history of nicotine dependence; Z20.822 Contact with and (suspected) exposure to COVID-19; W18.30XA Fall on same level, unspecified, initial encounter; Z83.3 Family history of diabetes mellitus
CPT/HCPCS: 96365; 96372 ×2; 99285; 36415; 95816; 93005; 93306; 80053; 80048; 82140; 82550; 84484; 85025 ×2; 85610; 85730; 81001; 80306; 80143; 87635; 80179; 71046; 93880; 72125; 70450; 70551; G0378 ×2; G0480; J1650 ×2; J1953; 80320

== ENCOUNTER → 2021-07-31 | Outpatient (CLI) | payer MEDICARE ==
--- NOTE | 2021-08-01 08:31 | ECHOF ---
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 This was a technically good study. The left ventricular size is normal. Left ventricular wall thickness is normal. Overall left vent ricular systolic function is normal with, an EF between 55 - 60 %. The right ventricle is normal in size. The left atrium is normal in size. The right atrium is normal in size. Interatrial and interventricular septum intact. The aortic valve is trileaflet and appears structurally normal. There is mild aortic regurgitation. Mild mitral regurgitation is present. Mild tricuspid regurgitation present. Right ventricular systolic pressure is normal at < 35 mmHg. Trace/mild (physiologic) pulmonic regurgitation. The aortic root size is normal. The ascending aorta is dilated measuring up to 40 mm. Normal inferior vena cava with normal inspiratory collapse consistent with estimated right atrial pre ssure of 5 mmHg. There is no pericardial effusion. CONCLUSIONS -------- 1. The left ventricular size is normal. 2. Left ventricular wall thickness is normal. 3. Overall left ventricular systolic function is normal with, an EF between 55 - 60 %. 4. The aortic valve is trileaflet and appears structurally normal. 5. There is mild aortic regurgitation. 6. Mild mitral regurgitation is present. 7. Mild tricuspid regurgitation present. 8. Trace/mild (physiologic) pulmonic regurgitation. 9. The ascending aorta is dilated measuring up to 40 mm. 10. There is no pericardial effusion. DOCUMENTATION LIAISON: Katiana Ogden RDCS
== END | disposition home or self-care (01) ==
LOC: RADECHMAIN 11:53
PROVIDERS: ATTEND Family Medicine
DX: I35.1 Nonrheumatic aortic (valve) insufficiency (principal); I34.0 Nonrheumatic mitral (valve) insufficiency; I07.1 Rheumatic tricuspid insufficiency; I37.1 Nonrheumatic pulmonary valve insufficiency
CPT/HCPCS: 93306

== ENCOUNTER → 2022-05-23 | Outpatient (CLI) | payer MEDICARE ==
--- NOTE | 2022-05-23 19:26 | BD ---
EXAMINATION TYPE: Axial Bone Density DATE OF EXAM: 05/23/2022 COMPARISON: PREVIOUS BONE DENSITY FROM 01/05/2019 NOT AVAILABLE CLINICAL HISTORY: 67 years year old Female. ICD-10 CODE: M89.9 BONE DISORDER Height: 63.5 IN Weight: 134 LBS RISK FACTORS HISTORY OF: Active: YES Diet low in dairy products/other sources of calcium: YES Postmenopausal woman: AGE 51 MEDICATIONS: Additional Medications: CALCIUM, MULTI VIT, B12,GALL BLADDER MEDS EXAM MEASUREMENTS: Bone mineral densitometry was performed using the [employer] System. Bone mineral density as measured about the Lumbar spine is: ----- L1-L4(G/cm2): 0.981 T Score Values are as follows: ----- L1: -1.5 ----- L2: -1.7 ----- L3: -2.0 ----- L4: -1.6 ----- L1-L4: -1.7 Bone mineral density FROM 01/05/2019 IS UNAVAILABLE Bone mineral density about the R hip (g/cm2): 0.753 Bone mineral density about the L hip (g/cm2): 0.734 T Score values are as follows: -----R Neck: -2.1 -----L Neck: -2.2 -----R Total: -1.2 -----L Total: -1.0 Bone mineral density FROM 01/05/2019 IS UNAVAILABLE FRAX%s: The graph provided illustrates a 12.4 chance for a major osteoporotic fx and a 2.6 chance for the hips probability for fx in 10 years time. IMPRESSION: Osteopenia (T Score between -2.5 and -1). There is slightly increased risk of fracture and the patient may be considered for treatment. Re-Screen 2-5 years. NOTE: T-SCORE=SD OF THE YOUNG ADULT MEAN.
--- NOTE | 2022-05-24 08:21 | MM ---
Reason for Exam: Screening (asymptomatic). Last mammogram was performed 3 year(s) and 9 month(s) ago. Patient History: Menarche at age 9. Patient has no children. Postmenopausal. Paternal aunt had breast cancer. Maternal aunt had breast cancer. Risk Values: Lynne 5 year model risk: 2.1%. NCI Lifetime model risk: 6.4%. Prior Study Comparison: 04/01/2009 Bilateral Screening Mammogram, [facility]. 11/26/2011 Bilateral Screening Mammogram, [facility]. 08/27/2018 Bilateral Screening Mammogram, [facility]. Tissue Density: The breast tissue is heterogeneously dense. This may lower the sensitivity of mammography. Findings: Analyzed By CAD. There is no suspicious group of microcalcifications or new suspicious mass in either breast. No significant change from prior examination. Overall Assessment: Negative, BI-RAD 1 Management: Screening Mammogram of both breasts in 1 year. A clinical breast exam by your physician is recommended on an annual basis and results should be correlated with mammographic findings. Electronically signed and approved by: Blayne Reyes D.O.
== END | disposition home or self-care (01) ==
LOC: RADMAMWWP 08:50
PROVIDERS: ATTEND Family Medicine
DX: Z12.31 Encounter for screening mammogram for malignant neoplasm of breast (principal); M89.9 Disorder of bone, unspecified
CPT/HCPCS: 77067; 77080

== ENCOUNTER → 2023-05-28 | Outpatient (CLI) | payer MEDICARE ==
--- NOTE | 2023-05-28 11:17 | XR ---
EXAMINATION TYPE: XR KUB DATE OF EXAM: 05/28/2023 HISTORY: Right ureteral calculus Comparison: None.Single KUB is submitted for interpretation. Findings: Right renal calculi: None Visualized. Right ureteral calculi: None Visualized. Left renal calculi: None Visualized. Left ureteral calculi: None Visualized. Pelvic calcifications: None Visualized. Bowel gas pattern is unremarkable. No free air. No mass effects. IMPRESSION: 1. No visible calculi. Examination is limited by overlying bowel content.
== END | disposition home or self-care (01) ==
LOC: RADXRMAIN 10:57
PROVIDERS: ATTEND Urology
DX: N20.1 Calculus of ureter (principal)
CPT/HCPCS: 74018

== ENCOUNTER → 2023-06-20 | Outpatient (CLI) | payer MEDICARE ==
--- NOTE | 2023-06-20 11:32 | XR ---
EXAMINATION TYPE: XR KUB DATE OF EXAM: 06/20/2023 HISTORY: Right ureteral calculus COMPARISON: KUB 05/28/2023 TECHNIQUE: Single KUB is submitted for interpretation. Findings: Right renal calculi: Suggested lower pole 2 mm calculus. Right ureteral calculi: None Visualized. Left renal calculi: None Visualized. Left ureteral calculi: None Visualized. Pelvic calcifications: None Visualized. Bowel gas pattern is unremarkable. No free air. No mass effects. Cholecystectomy clips in the right upper quadrant. IMPRESSION: Suggested right renal lower pole 2 mm calculus.
== END | disposition home or self-care (01) ==
LOC: RADXRMAIN 10:33
PROVIDERS: ATTEND Urology
DX: N20.1 Calculus of ureter (principal)
CPT/HCPCS: 74018

== ENCOUNTER → 2023-08-08 | Outpatient (CLI) | payer MEDICARE ==
--- NOTE | 2023-08-08 18:59 | US ---
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 No nephrolithiasis is seen. No dallin s are identified. The urinary bladder is anechoic. Bilateral ureteral jets are seen. IMPRESSION: No evidence for obstructive uropathy. Right extrarenal pelvis.
== END | disposition home or self-care (01) ==
LOC: RADUSWWP 13:21
PROVIDERS: ATTEND Urology
DX: N13.2 Hydronephrosis with renal and ureteral calculous obstruction (principal)
CPT/HCPCS: 76770

== ENCOUNTER → 2024-05-26 | Outpatient (CLI) | payer MEDICARE ==
--- NOTE | 2024-06-23 09:06 | MM ---
Reason for Exam: Screening (asymptomatic). Last mammogram was performed 2 year(s) and 0 month(s) ago. Patient History: Menarche at age 9. Patient has no children. Postmenopausal. Paternal aunt had breast cancer. Maternal aunt had breast cancer. Risk Values: Lynne 5 year model risk: 2.1%. NCI Lifetime model risk: 5.9%. Prior Study Comparison: 11/26/2011 Bilateral Screening Mammogram, [facility]. 08/27/2018 Bilateral Screening Mammogram, [facility]. 05/23/2022 Bilateral MG screening mammo w CAD, [facility]. Tissue Density: The breasts are heterogeneously dense, which may obscure small masses. Findings: Analyzed By CAD. Right breast: There is no suspicious group of microcalcifications or new suspicious mass. Left breast: There is no suspicious group of microcalcifications or new suspicious mass. Overall Assessment: Negative, BI-RAD 1 Management: Screening Mammogram of both breasts in [address] [facility] will attempt to contact patient to return for supplemental views and ultrasound if indicated. Patient should continue monthly self-breast exams. A clinical breast exam by your physician is recommended on an annual basis. This exam should not preclude additional follow-up of suspicious palpable abnormalities. Note on Lynne scores and lifetime risk: 1. A Lynne score greater than 3% is considered moderate risk. If this is the case, consider specialist referral to assess eligibility for a risk reducing agent. 2. If overall lifetime risk for the development of breast cancer is 20% or higher, the patient may qualify for future screening with alternating mammogram and breast MRI. Electronically signed and approved by: Benedict Iglesias DO
== END | disposition home or self-care (01) ==
LOC: RADBDWWP 09:44
PROVIDERS: ATTEND Family Medicine
DX: Z12.31 Encounter for screening mammogram for malignant neoplasm of breast (principal); M89.9 Disorder of bone, unspecified; Z78.0 Asymptomatic menopausal state; Z80.3 Family history of malignant neoplasm of breast
CPT/HCPCS: 77067

== ENCOUNTER → 2024-07-10 | Outpatient (CLI) | payer MEDICARE ==
--- NOTE | 2024-07-20 21:41 | BD ---
EXAMINATION TYPE: Axial Bone Density DATE OF EXAM: 07/10/2024 CLINICAL HISTORY: 69 years old Female. ICD-10 CODE: M89.9 disorder of bone Height: 63.5in Weight: 120lb FRAX RISK QUESTIONS: Secondary Osteoporosis: RISK FACTORS HISTORY OF: MEDICATIONS: EXAM MEASUREMENTS: Bone mineral densitometry was performed using the [employer] System. Bone mineral density as measured about the Lumbar spine is: ----- L1-L4(G/cm2): 0.974 T Score Values are as follows: ----- L1: -1.8 ----- L2: -2.0 ----- L3: -1.7 ----- L4: -1.6 ----- L1-L4: -1.7 Z Score Values are as follows: ----- L1: 0.2 ----- L2: 0.0 ----- L3: 0.4 ----- L4: 0.5 ----- L1-L4: 0.3 Bone mineral density has: Decreased -0.7% since study of: 05-23-22 Bone mineral density about the R hip (g/cm2): 0.860 Bone mineral density about the L hip (g/cm2): 0.896 T Score values are as follows: -----R Neck: -2.1 -----L Neck: -2.0 -----R Total: -1.2 -----L Total: -0.9 Z Score values are as follows: -----R Neck: -0.1 -----L Neck: 0.0 -----R Total: 0.6 -----L Total: 0.9 Bone mineral density has: Increased 1.5% since study of: 05-23-22 FRAX%s: The graph provided illustrates a 11.4% chance for a major osteoporotic fx and a 2.6% chance f or the hips probability for fx in 10 years time. IMPRESSION: Osteopenia (T Score between -2.5 and -1). There is slightly increased risk of fracture and the patient may be considered for treatment. Re-Screen 2-5 years. NOTE: T-SCORE=SD OF THE YOUNG ADULT MEAN. [facility], , 07/20/2024 9:38 PM
== END | disposition home or self-care (01) ==
LOC: RADBDWWP 10:50
PROVIDERS: ATTEND Family Medicine
DX: M89.9 Disorder of bone, unspecified
CPT/HCPCS: 77080